=== PATIENT | female | born 1970 | race Caucasian/White ===

== ENCOUNTER 2017-01-26 09:54 | Day surgery (SDC) | payer BC, OTHER ==
[2017-01-22 15:40] VITALS: BMI 43.9
[2017-01-26] MEDS ORDERED: BUPIVACAINE HCL/PF 0.25% (2.5MG/ML) 10 ML VIAL ONE (10:28)
[2017-01-26] MEDS ORDERED: MIDAZOLAM HCL 2 MG/2 ML SINGLE DOSE VIAL ONE (11:00)
[2017-01-26] MEDS ORDERED: ceFAZolin SODIUM 1 GM VIAL IVPB ONE (11:30)
[2017-01-26] MEDS ORDERED: ceFAZolin SODIUM 1 GM VIAL ONE (11:31)
[2017-01-26] MEDS ORDERED: PROPOFOL 20 ML ONE (12:03)
[2017-01-26] MEDS ORDERED: BUPIVACAINE HCL/PF 0.5% (5MG/ML) 10 ML VIAL IJ ONE (12:03)
[2017-01-26] MEDS ORDERED: oxyCODONE HCL 5 MG TABLET PO PRN ×2 (12:24→12:28)
[2017-01-26] MEDS ORDERED: ONDANSETRON 4 MG/2 ML VIAL IVPUSH PRN (12:24)
[2017-01-26] MEDS ORDERED: ONDANSETRON 4 MG/2 ML VIAL IVPB PRN (12:28)
[2017-01-26] MEDS ORDERED: SODIUM CHLORIDE 1,000 ML IV SCH (12:30)
[2017-01-26] MEDS ORDERED: LACTATED RINGERS SOLUTION 1,000 ML IV SCH (12:30)
[2017-01-26] MEDS ORDERED: FAMOTIDINE 20 MG/50 ML IVPB 50 ML IVPB ONE (12:49)
[2017-01-26] MEDS ORDERED: FAMOTIDINE 20 MG PREMIXED IVPB IVPB ONE (12:49)
[2017-01-26 13:39] VITALS: TEMP 98.3
[2017-01-26] MEDS ORDERED: oxyCODONE HCL 5 MG TABLET ONE (14:25)
[2017-01-26] MEDS ORDERED: oxyCODONE HCL 5 MG TABLET PO ONE (14:30)
[2017-01-26] MEDS ORDERED: ENOXAPARIN NA (PORCINE) 40 MG/0.4 ML DISP.SYRIN SQ ONE ×2 (15:50→16:00)
[2017-01-26 16:42] VITALS: BP 127/78; PULSE 76
[2017-01-26] MEDS ORDERED: FAMOTIDINE 20 MG/50 ML IVPB 50 ML IVPB SCH (22:00)
--- NOTE | 2017-01-27 10:30 | OP ---
DATE OF OPERATION: 01/26/2017 PREOPERATIVE DIAGNOSES: 1. Epigastric abdominal pain. 2. Malfunctioning subcutaneous gastric band port. 3. Morbid obesity. POSTOPERATIVE DIAGNOSES: 1. Epigastric abdominal pain. 2. Malfunctioning subcutaneous gastric band port. 3. Morbid obesity. 4. Ventral hernia. PROCEDURE PERFORMED: 1. Revision of subcutaneous gastric band port. 2. Repair of ventral hernia. 3. Band adjustment. OPERATING SURGEON: Prabhjot Zuluaga MD ADHESIVE BANDAGE MAKING OPERATOR: Gabo Short MD ANESTHESIA: LMA mask. DESCRIPTION OF OPERATIVE PROCEDURE: The patient was brought into the operating room, placed on the OR table in supine position. All precautions were taken initially including padding for the back, and Venodyne boots were placed on both lower extremities. At that point, the abdomen was prepped and draped in usual manner. The port was twisted approximately 90 degrees which was proven by x-ray exam before surgery. The port was, therefore, felt underneath the skin in the epigastrium or midway between the xiphoid and the umbilicus in the midline scar from the patient's previous exploratory laparotomy. An incision was made transversely starting from the midline and extending laterally towards the right anterior rectus muscle. The incision was then continued with electrocautery through the subcutaneous tissue. In the midline where the midline incision was, there was a lot of scar tissue, and here, the band port was located. The scar tissue around the port was cleaned around the port, and the fibrous capsule was now removed from around the port. Dissection now continued more laterally through the subcutaneous tissue, down to the right anterior rectus muscle. There was scar tissue still from the midline position of the port, and this had to be dissected away in order for the port to sit properly. I discontinued downward. Once the scar tissue was dissected away, it unroofed a ventral hernia which was the size of approximately 2 to 2.5 cm. The ventral hernia then was repaired with 0 Prolene suture in interrupted fashion starting medially and continuing on the anterior fascia of the right rectus muscle in a lateral direction. Once this was repaired, it was intact. Dissection continued until the right anterior rectus muscle fascia was in full view. Four No. 2-0 Prolene sutures were placed in all 4 sides, and the port was then attached to the right anterior rectus muscle, and the Prolene sutures were tied. Once this was done, the port was now in a good perpendicular direction, and because the patient had morbid obesity, 1 mL of normal saline was then placed with a number 23 gauge needle into the port and it was used to fill the port with fluid. At this point, the incision was closed with 3-0 Vicryl in an interrupted fashion on the subcutaneous tissue, followed by 4-0 Biosyn in subcuticular fashion. Dressings were applied. The patient awoke from anesthesia and transferred out of the operating room to the recovery room in stable condition. Anesthesia for the case was general. Expected blood loss: 20 mL. Patient transferred to recovery room in stable condition. Baldomero [id number]
== END 2017-01-26 16:30 | disposition home or self-care (01) ==
LOC: JASU-SURG 09:54
PROVIDERS: ATTEND Surgery
PROC: 0WQF0ZZ Repair Abdominal Wall, Open Approach (ICD-10-PCS; 2017-01-26)
PROC: 3E0G3GC Introduction of Other Therapeutic Substance into Upper GI, Percutaneous Approach (ICD-10-PCS; 2017-01-26)
PROC: 0DW60CZ Revision of Extraluminal Device in Stomach, Open Approach (ICD-10-PCS; principal; 2017-01-26 11:00)
DX: K95.09 Other complications of gastric band procedure (principal); K43.9 Ventral hernia without obstruction or gangrene; R10.13 Epigastric pain; E66.01 Morbid (severe) obesity due to excess calories
CPT/HCPCS: 43888; 49560; S2083; 84703; 86850; 86900; 86901; 94760

== ENCOUNTER 2017-10-30 13:29 | Day surgery (SDC) | payer BC, OTHER ==
[2017-10-29 08:48] VITALS: BMI 42.5
[2017-10-30] MEDS ORDERED: PROPOFOL 20 ML ONE (18:23)
[2017-10-30] MEDS ORDERED: ROCURONIUM BROMIDE 50 MG/5 ML VIAL ONE (18:23)
[2017-10-30] MEDS ORDERED: MIDAZOLAM HCL 2 MG/2 ML SINGLE DOSE VIAL ONE (18:23)
[2017-10-30] MEDS ORDERED: LIDOCAINE HCL/PF 2% SDV 5ML VIAL ONE (18:25)
[2017-10-30] MEDS ORDERED: ceFAZolin SODIUM 1 GM VIAL ONE (18:53)
[2017-10-30] MEDS ORDERED: ceFAZolin SODIUM 1 GM VIAL IVPB ONE (18:55)
[2017-10-30] MEDS ORDERED: ESMOLOL HCL 100,000 MCG/10 ML VIAL ONE (19:03)
[2017-10-30] MEDS ORDERED: fentaNYL CITRATE 250 MCG/5 ML VIAL ONE (19:11)
[2017-10-30] MEDS ORDERED: ONDANSETRON 4 MG/2 ML VIAL ONE (19:13)
[2017-10-30] MEDS ORDERED: DEXAMETHASONE SOD PHOSPHATE 4 MG/1 ML VIAL ONE (19:13)
[2017-10-30] MEDS ORDERED: LABETALOL HCL 5 MG/1 ML (100MG/20 ML VIAL) ONE (19:18)
[2017-10-30] MEDS ORDERED: BUPIVACAINE HCL/PF 0.5% (5MG/ML) 10 ML VIAL ONE (19:46)
[2017-10-30] MEDS ORDERED: GLYCOPYRROLATE 0.2 MG/1 ML VIAL ONE (19:49)
[2017-10-30] MEDS ORDERED: NEOSTIGMINE METHYLSULFATE 0.5 MG/ML - 10 ML MDV ONE (19:49)
[2017-10-30] MEDS ORDERED: BUPIVACAINE HCL/PF 0.5% (5MG/ML) 10 ML VIAL IJ ONE (20:06)
[2017-10-30] MEDS ORDERED: oxyCODONE HCL 5 MG TABLET PO PRN (20:12)
[2017-10-30] MEDS ORDERED: ONDANSETRON 4 MG/2 ML VIAL IVPUSH PRN (20:12)
[2017-10-30] MEDS ORDERED: SODIUM CHLORIDE 1,000 ML IV SCH (20:15)
--- NOTE | 2017-10-30 20:19 | SURG ---
Surgery Risk Developer Note Risk Developer: Shaun Thompson PA-C Date of Service: 10/30/17 Diagnosis: Mechanical failure of slipped device (lap band), GERD, nausea/vomiting Procedure: Laprascopic lysis of adhesions, removal of lap band plus port component I was present for the entirety of the operative procedure. For further detail, please refer to operative report. Visit type - Case Type Case Type: Scheduled - New patient This patient is new to me today: Yes Date on this admission: 10/30/17
[2017-10-30] MEDS ORDERED: LACTATED RINGERS SOLUTION 1,000 ML IV SCH (20:30)
--- NOTE | 2017-10-30 20:30 | OP ---
Operative Note - Note: Operative Date: 10/30/17 Pre-Operative Diagnosis: Epigastric Pain. Vomiting. Malfunctioning mechanical device secondary to gastric band Operation: removal of gastric band plus sub-q port. Laparoscopic Lysis of adhesions. Excision of fibrous capsule around stomach. Diagnostic Laparoscopy Findings: Large amount of adhesions between omentum and abdominal wall Large adhesions between Band, Liver and Small Bowel Post-Operative Diagnosis: Same as Pre-op (Abdominal adhesions; Fibrous capsule around stomach) Surgeon: Prabhjot Zuluaga Dock Superintendent: Shaun Thompson Anesthesia: General Specimens Removed: Gastric Band plus sub-Q port Estimated Blood Loss (mls): 30 Operative Report Dictated: Yes
[2017-10-30] MEDS ORDERED: FAMOTIDINE 20 MG PREMIXED IVPB IVPB ONE (20:40)
[2017-10-30] MEDS: ENOXAPARIN NA (PORCINE) 40 MG/0.4 ML DISP.SYRIN SQ ONE ×2 (21:06→21:34)
--- NOTE | 2017-10-30 21:15 | HP ---
DATE OF ADMISSION: 10/30/2017 CHIEF COMPLAINT: 1. Epigastric pain. 2. Vomiting. 3. GE reflux disease. 4. Malfunctioning implantable device secondary to gastric band. HISTORY OF PRESENT ILLNESS: The patient is a 46-year-old woman who has had the gastric band for a number of years, but recently had many symptoms related to it. Despite multiple attempts at loosening the band, she still complained of epigastric pain when eating and also vomiting and GE reflux disease. This is secondary to malfunctioning of the band which needs to be removed. PAST MEDICAL HISTORY: Noncontributory. MEDICATIONS: Patient takes no medications except some vitamins over the counter. ALLERGIES: The patient had allergy to CIPRO. REVIEW OF SYMPTOMS: Cardiovascular: Within normal limits. Gastrointestinal: Positive for GE reflux disease and epigastric pain periodically. Neuromuscular: Within normal limits. Musculoskeletal: Within normal limits. Genitourinary: Within normal limits. PHYSICAL EXAMINATION: General: Patient awake, alert. No acute distress. HEENT: No masses palpated. Lungs: Clear bilaterally. Heart: Regular sinus rhythm. Abdomen: Well-healed incisions. Soft, nontender on palpation in all quadrants. Extremities: Within normal limits. IMPRESSION: Malfunctioning implantable device secondary to gastric band. PLAN: Plan is for laparoscopic removal of gastric band plus subcutaneous port component. Baldomero [id number]
[2017-10-30] MEDS ORDERED: FAMOTIDINE 20 MG/50 ML IVPB 20 MG/50 ML MG IVPB SCH (22:00)
[2017-10-30 23:30] VITALS: BP 141/98; PULSE 94; TEMP 98.3
--- NOTE | 2017-10-31 09:28 | OP ---
DATE OF OPERATION: 10/30/2017 PREOPERATIVE DIAGNOSES: 1. Epigastric abdominal pain. 2. Vomiting. 3. Mechanical complication from implantable device secondary to gastric band. POSTOPERATIVE DIAGNOSES: 1. Epigastric abdominal pain. 2. Vomiting. 3. Mechanical complication from implantable device secondary to gastric band. 4. Abdominal adhesions. 5. Fibrous capsule around the stomach. PROCEDURE PERFORMED: 1. Removal of gastric band plus subcutaneous port component. 2. Laparoscopic lysis of adhesions. 3. Excision of fibrous capsule around the stomach. 4. Diagnostic laparoscopy. OPERATING SURGEON: Prabhjot Zuluaga MD COMMUNITY LIVING INSTRUCTOR: NOY Montero ANESTHESIA: General. OPERATIVE PROCEDURE: The patient was brought into the operating room, placed on the OR table in the supine position. All precautions were taken initially including padding for the back and the feet, and Venodyne boots were placed on both lower extremities. At that point, the abdomen was prepped and draped in usual manner. A Veress needle was placed in the left upper quadrant, and a pneumoperitoneum was established. A number 5 bladeless trocar was placed in the left upper quadrant under direct vision with a laparoscope until the abdomen was entered. Immediately upon entering the abdomen, a number 5 camera was placed, and this showed there to be massive adhesions in the midline from the patient's previous midline surgery. These adhesions went from the umbilicus all the way up to the liver itself. At that point, a number 15 bladeless trocar was placed midline, and through that, a now number 12 camera was placed. Using the angle of the camera, a number 12 bladeless trocar was placed in the left upper quadrant below the left costal margin. The camera was now placed in the left upper quadrant, and now attention was directed to the adhesions. There was lysis of adhesions between the omentum and the falciform ligament until a number 5 bladeless trocar could be placed in the right upper quadrant lateral to the falciform ligament, and a laparoscopic instrument was placed. There were massive adhesions between the liver edge and the omentum, and these were gently dissected with the help of the assistant cross country coach surgeon, mostly with electrocautery until the band tubing was noted on the edge of the liver. At this point, with the assistant cross country coach surgeon retracting the small bowel inferiorly, the operating surgeon lifted the band tubing up, and electrocautery was used to dissect first the liver off of the band tubing and then the fibrous capsule off of the band tubing until the band was reached. Attention was now directed to the band on the lesser curvature side where again the assistant cross country coach surgeon retracted the small bowel inferiorly and to be out of harm's way. The operating surgeon was then able to lyse the fibrous capsule over the band until the entire lesser curvature of the band was in full view. At this point, the assistant cross country coach surgeon retracted the band to the patient's right side as the operating surgeon retracted the band tubing and the band towards the patient's right side, as the assistant cross country coach surgeon continued to retract the small bowel inferiorly. Now, the fibrous tissue over the band on the greater curvature side was dissected, and once this was done enough, the band was freely movable. The band was then cut at its takeoff to the subcutaneous tissue and the band was then opened and the band was then removed from around the stomach and sent off the field as specimen to Pathology. At this point, under direct vision, all trocars were removed, and pneumoperitoneum was released. The midline incision was now extended to the right side, and dissection continued with electrocautery down to the port on the right anterior rectus muscle fascia. The port was then removed and sent off the field as a specimen to Pathology with the rest of the specimen, and now, all trocar sites received 0.25% Marcaine. The number 15 trocar site was closed with 3-0 Vicryl to close the subcutaneous tissue, and then, all trocar sites were closed with 4-0 Biosyn in subcuticular fashion. Dressings were applied. The patient awoke from anesthesia and transferred out of the operating room to the recovery room in stable condition. EXPECTED BLOOD LOSS: 30 mL Baldomero [id number]
--- NOTE | 2017-11-04 11:10 | PATH ---
Surgical Pathology Report Patient Name: STACI RUBIO [facility]. Rec. #: [id number] /Age/Gender: 1970 (Age: 46) / F Account: [id number] Location: [facility] Taken: 10/30/2017 Received: 11/03/2017 Reported: 11/04/2017 Physicians: Prabhjot Zuluaga M.D. Specimen(s) Received REMOVED GASTRIC BAND Clinical History Malfunctioning gastric band Final Diagnosis GASTRIC BAND, REMOVAL: GASTRIC BAND. MACROSCOPIC DIAGNOSIS. Electronically Signed Freida Mcmahon M.D. Gross Description Received fresh labeled "removed gastric band," is a 4 cm. in diameter white, annular device with a focal defect, consistent with a gastric band. The band displays a 32 cm in length portion of white tubing extending from one aspect. Also received within the same container is a 3 cm in diameter x 1.5 cm in depth white, circular device, consistent with a port. The port displays a 25 cm in length portion of white tubing extending from one aspect. No soft tissue is present. No sections are submitted, gross only. DL/11/03/2017 saudi/11/03/2017
== END 2017-10-30 23:48 | disposition home or self-care (01) ==
LOC: JASU-SURG 13:29 → J8W 23:02 → JASU-SURG 23:48
PROVIDERS: ATTEND Surgery
PROC: 0DP60CZ Removal of Extraluminal Device from Stomach, Open Approach (ICD-10-PCS; 2017-10-30)
PROC: 0DN64ZZ Release Stomach, Percutaneous Endoscopic Approach (ICD-10-PCS; 2017-10-30)
PROC: 0DP64CZ Removal of Extraluminal Device from Stomach, Percutaneous Endoscopic Approach (ICD-10-PCS; principal; 2017-10-30 16:00)
DX: T85.518A Breakdown (mechanical) of other gastrointestinal prosthetic devices, implants and grafts, initial encounter (principal); K95.09 Other complications of gastric band procedure; K31.89 Other diseases of stomach and duodenum; R10.13 Epigastric pain; R11.10 Vomiting, unspecified; K66.0 Peritoneal adhesions (postprocedural) (postinfection); Y93.89 Activity, other specified; Y92.89 Other specified places as the place of occurrence of the external cause
CPT/HCPCS: 36415; 84703; 86850; 86900; 86901; 88300-TC; 94760

== ENCOUNTER 2017-12-15 11:00 | Inpatient (IN) | payer BC, OTHER ==
[2017-12-14 08:43] VITALS: BMI 42.3
[2017-12-15] MEDS ORDERED: BUPIVACAINE HCL/PF 0.5% (5MG/ML) 10 ML VIAL ONE ×3 (13:53→18:15)
--- NOTE | 2017-12-15 14:10 | HP ---
Admitting History and Physical - Admission Chief Complaint: Incisional /ventral hernia with pain History of Present Illness: 47 female s/p Shawn en y Gastric Bypass, Lap band, lap band removal with multiple admissions for abdominal pain With incisional/ventral hernia causing pain Presents for repair Risks and benefits explained History Source: Patient Limitations to Obtaining History: No Limitations - Past Medical History Pulmonary: Yes: Pulmonary Embolus, Other (DVT) Gastrointestinal: Yes: Other (periebolical pain) ...LMP: 12/03/17 - Past Surgical History Past Surgical History: Yes: Bariatric Surgery (Gastric Bypass Lap Band Lap band removal) - Smoking History Smoking history: Never smoked Have you smoked in the past 12 months: No - Alcohol/Substance Use Hx Alcohol Use: Yes (recovering) History of Substance Use: reports: None - Social History ADL: Independent History of Recent Travel: No Home Medications - Allergies Allergies/Adverse Reactions: Allergies Allergy/AdvReac Type Severity Reaction Status Date / Time ciprofloxacin [From Cipro] Allergy Severe Rash Verified 11/25/17 07:20 - Home Medications Home Medications: Ambulatory Orders Multivit/Iron/FA/K/Herb No.244 [Alive [employer] Mv Tablet] 1 each PO DAILY 01/22/17 Famotidine [Pepcid] 20 mg PO QID #60 tablet 10/30/17 Oxycodone HCl/Acetaminophen [Percocet 5-325 mg Tablet] 1 tab PO Q6H PRN #20 tablet MDD 4 10/30/17 Docusate Sodium [Colace -] 100 mg PO TID #90 capsule 12/15/17 Famotidine [Pepcid] 20 mg PO BID #60 tablet 12/15/17 Oxycodone HCl/Acetaminophen [Percocet 5-325 mg Tablet] 1 - 2 tab PO Q6H #28 tab MDD 4 12/15/17 Family Disease History - Family Disease History Family History: Unremarkable Review of Systems - Review of Systems Constitutional: denies: Chills, Fever HENT: reports: No Symptoms Neck: reports: No Symptoms Cardiovascular: denies: Chest Pain Respiratory: denies: Cough Gastrointestinal: reports: Abdominal Pain Genitourinary: reports: No Symptoms Neurological: denies: Change in LOC Pain Intensity: 3 Physical Examination Vital Signs: Vital Signs Temperature Pulse Rate 60 12/15/17 12:13 Respiratory Rate 16 12/15/17 12:13 Blood Pressure 109/59 12/15/17 12:13 O2 Sat by Pulse Oximetry (%) 100 12/15/17 12:13 Constitutional: Yes: Calm Neck: Yes: WNL Cardiovascular: Yes: Regular Rate and Rhythm Respiratory: Yes: CTA Bilaterally Gastrointestinal: Yes: Soft, Abdomen, Obese, Other (+ ventral/incisional hernia with pain) Neurological: Yes: Alert, Oriented Imaging - Results Cat Scan: Report Reviewed, Image Reviewed Problem List - Problems (1) Incisional hernia Code(s): K43.2 - INCISIONAL HERNIA WITHOUT OBSTRUCTION OR GANGRENE Qualifiers: Obstruction and gangrene presence: with obstruction but without gangrene Qualified Code(s): K43.0 - Incisional hernia with obstruction, without gangrene (2) Ventral hernia with bowel obstruction Code(s): K43.6 - OTHER AND UNSP VENTRAL HERNIA WITH OBSTRUCTION, W/O GANGRENE Assessment/Plan 47 female for diagnositc laparoscopy, possible exploratory laparotomy, Robotic possible open incisional/ventral hernia repair with possible mesh
[2017-12-15] MEDS ORDERED: fentaNYL CITRATE 250 MCG/5 ML VIAL ONE ×2 (14:32→15:17)
[2017-12-15] MEDS ORDERED: PROPOFOL 20 ML ONE ×4 (14:33→17:22)
[2017-12-15] MEDS ORDERED: MIDAZOLAM HCL 2 MG/2 ML SINGLE DOSE VIAL ONE (14:33)
[2017-12-15] MEDS ORDERED: ROCURONIUM BROMIDE 50 MG/5 ML VIAL ONE ×2 (14:33→16:28)
[2017-12-15] MEDS ORDERED: ceFAZolin SODIUM 1 GM VIAL ONE (14:59)
[2017-12-15] MEDS ORDERED: ceFAZolin SODIUM 1 GM VIAL IVPB ONE (15:03)
[2017-12-15] MEDS ORDERED: DEXAMETHASONE SOD PHOSPHATE 4 MG/1 ML VIAL ONE (15:16)
[2017-12-15] MEDS ORDERED: LABETALOL HCL 5 MG/1 ML (100MG/20 ML VIAL) ONE (16:10)
[2017-12-15] MEDS ORDERED: NEOSTIGMINE METHYLSULFATE 0.5 MG/ML - 10 ML MDV ONE (16:14)
[2017-12-15] MEDS ORDERED: GLYCOPYRROLATE 0.2 MG/1 ML VIAL ONE (16:14)
[2017-12-15] MEDS ORDERED: DESFLURANE GAS 240 ML BOTTLE IH ONE (16:55)
[2017-12-15] MEDS ORDERED: BUPIVACAINE HCL/PF 0.5% (5MG/ML) 10 ML VIAL IJ ONE ×2 (18:10)
--- NOTE | 2017-12-15 18:18 | OP ---
Operative Note - Note: Operative Date: 12/15/17 Pre-Operative Diagnosis: Chronically incarcerated incisional/ventral hernia Operation: Diagnostic laparoscopy. Robotic extensive lysis of adhesions. Robotic repair of incarcerated incisional/ventral hernia- primary and with mesh Post-Operative Diagnosis: Other (Diffuse intraabdominal adhesions, incarcerated incisional/ventral hernia) Surgeon: Gabo Short Contract Negotiation Manager: Manda Garcia Anesthesia: General Specimens Removed: None Estimated Blood Loss (mls): 50 Drains & Tubes with Location: [place], NG tube Operative Report Dictated: Yes
[2017-12-15] MEDS ORDERED: ONDANSETRON 4 MG/2 ML VIAL IVPUSH PRN ×2 (18:19→19:01)
[2017-12-15] MEDS ORDERED: D5-1/2NS+20 MEQ KCL - 1,000 ML IV SCH (18:30)
[2017-12-15] MEDS ORDERED: ACETAMINOPHEN INJECTION 100 ML IVPB ONE (18:54)
[2017-12-15] MEDS: ACETAMINOPHEN 1000 MG/100 ML VIAL (NON FORMULARY) IVPB ONE ×2 (19:00→21:09)
[2017-12-15] MEDS ORDERED: PROMETHAZINE HCL 25 MG/1 ML VIAL IVPB PRN (19:01)
--- NOTE | 2017-12-15 19:05 | SURG ---
Surgery Nozzle And Sleeve Worker Note Nozzle And Sleeve Worker: Manda Garcia PA-C Date of Service: 12/15/17 Diagnosis: Chronically incarcerated incisional/ventral hernia Procedure: Diagnostic laparoscopy. Robotic extensive lysis of adhesions. Robotic repair of incarcerated incisional/ventral hernia- primary and with mesh I was present for the entirety of the operative procedure. For further detail, please refer to operative report. Visit type - Case Type Case Type: Scheduled - Emergency Emergency Visit: No - New patient This patient is new to me today: Yes Date on this admission: 12/15/17
[2017-12-15] MEDS ORDERED: LACTATED RINGERS SOLUTION 1,000 ML IV SCH (19:15)
[2017-12-15 19:35] LABS: HEMATOCRIT 33.9 % (32.4-45.2); HEMOGLOBIN 10.4 GM/dL (10.7-15.3); MCH 23.9 pg (25.7-33.7); MCHC 30.8 g/dl (32.0-36.0); MEAN CELL VOLUME 77.9 fl (80-96); MEAN PLT VOLUME 8.3 fl (7.5-11.1); PLATELET COUNT 288 K/MM3 (134-434); RBC 4.36 M/mm3 (3.60-5.2); RDW 17.5 % (11.6-15.6)
[2017-12-15] MEDS: SODIUM CHLORIDE 1,000 ML IV SCH (19:51)
[2017-12-15 19:57] LABS: ANION GAP 7 (8-16); BLOOD UREA NITROGEN 10 mg/dL (7-18); CALCIUM 8.3 mg/dL (8.5-10.1); CHLORIDE 105 mmol/L (98-107); CO2 29 mmol/L (21-32); CREATININE 0.7 mg/dL (0.55-1.02); GLUCOSE,RANDOM 147 mg/dL (74-106); POTASSIUM 4.2 mmol/L (3.5-5.1); SODIUM 141 mmol/L (136-145)
[2017-12-15] MEDS: ENOXAPARIN NA (PORCINE) 40 MG/0.4 ML DISP.SYRIN SQ SCH (21:22)
[2017-12-15] MEDS: morphine SULFATE 4 MG/ML VIAL IVPUSH PRN (21:22)
[2017-12-15] MEDS: RANITIDINE HCL 150 MG TABLET (FP) PO SCH (21:22)
[2017-12-16] MEDS: morphine SULFATE 4 MG/ML VIAL IVPUSH PRN ×5 (01:24→21:21)
[2017-12-16 08:28] LABS: HEMATOCRIT 30.5 % (32.4-45.2); HEMOGLOBIN 9.6 GM/dL (10.7-15.3); MCH 24.4 pg (25.7-33.7); MCHC 31.4 g/dl (32.0-36.0); MEAN CELL VOLUME 77.8 fl (80-96); MEAN PLT VOLUME 8.1 fl (7.5-11.1); PLATELET COUNT 239 K/MM3 (134-434); RBC 3.93 M/mm3 (3.60-5.2); RDW 17.4 % (11.6-15.6); WHITE BLOOD COUNT 7.5 K/mm3 (4.0-10.0)
--- NOTE | 2017-12-16 08:48 | PN ---
Progress Note (short form) - Note Progress Note: Anesthesia post op/Pain Pt seen and examined S:Alert and awake mild headache O: Vital Signs Temperature 99.4 F 12/16/17 06:00 Pulse Rate 86 12/16/17 06:00 Respiratory Rate 20 12/16/17 06:00 Blood Pressure 126/76 12/16/17 06:00 O2 Sat by Pulse Oximetry (%) 97 12/15/17 21:00 CBC, BMP 12/16/17 06:30 A/P Current Active Problems Incarcerated incisional hernia (Acute) Incarcerated ventral hernia (Acute) Incisional hernia (Acute) Intra-abdominal adhesions (Acute) Ventral hernia with bowel obstruction (Acute) s/p Doing well post op Continue current care Ton Kelly MD
[2017-12-16 08:55] LABS: BLOOD UREA NITROGEN 7 mg/dL (7-18); CALCIUM 8.6 mg/dL (8.5-10.1); CO2 29 mmol/L (21-32); CREATININE 0.4 mg/dL (0.55-1.02); GLUCOSE,RANDOM 95 mg/dL (74-106)
[2017-12-16] MEDS ORDERED: ACETAMINOPHEN 325 MG TABLET (FP) PO ONE (09:30)
--- NOTE | 2017-12-16 09:41 | PN ---
Progress Note (short form) - Note Progress Note: Surgery POD #1 Robotic extensive lysis of adhesions. Robotic repair of incarcerated incisional/ventral hernia- primary and with mesh. Patient seen and examined at bedside. Patient states she had a minor headache this morning but it appears to be improving. She has been tolerating her diet and denies any CP/SOB, N/V Fever or chills. Vital Signs Temp 99.4 F 12/16/17 06:00 Pulse 86 12/16/17 06:00 Resp 20 12/16/17 06:00 BP 126/76 12/16/17 06:00 Pulse Ox 97 12/15/17 21:00 Intake & Output 12/15/17 12/15/17 12/16/17 11:59 23:59 11:59 Intake Total 3015 Output Total 400 800 Balance 2615 -800 Intake: IV 2875 Normal Saline - 1,000 ml 425 @ 125 mls/hr IV ASDIR VILLA Rx#:[id number] IVPB 20 Oral 120 Output: Urine 350 800 [place] 800 Estimated Blood Loss 50 Other: Voiding Method Indwelling Catheter CBC, BMP 12/16/17 06:30 PE A&Ox3, NAD unlabored resp on RA ABD: obese, soft, supple with mild ttp throughout appropriate to status, incisions c/d/i with no d/c surrounding tissue intact with no evidence of tracking erythema. b/l LE compartments soft, supple and non-tender with +2 pedal pulses. <Manda Garcia - Last Filed: 12/16/17 13:38> - Note Progress Note: Agree POD 1 Still with postop pain Will continue to observe On diet AVSS Abd soft Binder in place Labs WNL Plan for discharge in am <Gabo Short - Last Filed: 12/16/17 14:54> Problem List - Problems (1) Incarcerated ventral hernia Assessment/Plan: POD#1 ventral hernia repair. 1) OOB as tolerated 2) d/c [place] sant[place] 3) DVT/GI prophylaxis 4) d/c home Code(s): K46.0 - UNSP ABDOMINAL HERNIA WITH OBSTRUCTION, WITHOUT GANGRENE <Manda Garcia - Last Filed: 12/16/17 13:38> - Problems (1) Incisional hernia Code(s): K43.2 - INCISIONAL HERNIA WITHOUT OBSTRUCTION OR GANGRENE Qualifiers: Obstruction and gangrene presence: with obstruction but without gangrene Qualified Code(s): K43.0 - Incisional hernia with obstruction, without gangrene (2) Ventral hernia with bowel obstruction Code(s): K43.6 - OTHER AND UNSP VENTRAL HERNIA WITH OBSTRUCTION, W/O GANGRENE <Gabo Short - Last Filed: 12/16/17 14:54>
[2017-12-16] MEDS: RANITIDINE HCL 150 MG TABLET (FP) PO SCH ×2 (10:20→21:21)
[2017-12-16] MEDS: ENOXAPARIN NA (PORCINE) 40 MG/0.4 ML DISP.SYRIN SQ SCH ×2 (10:20→21:21)
[2017-12-16 12:55] LABS: ANION GAP 7 (8-16); CHLORIDE 104 mmol/L (98-107); POTASSIUM 4.2 mmol/L (3.5-5.1); SODIUM 140 mmol/L (136-145)
--- NOTE | 2017-12-16 13:16 | PN ---
Progress Note, Physician Chief Complaint: s/p vent5 hernia repair vss bm ok oob tolerating diet wd dry - Current Medication List Current Medications: Active Medications Enoxaparin Sodium (Lovenox -) 40 mg SQ BID [facility] Last Admin: 12/16/17 10:20 Dose: 40 mg Fentanyl (Sublimaze Injection -) 50 mcg IVPUSH [id number] PRN PRN Reason: PAIN-PACU ORDER X 4 DOSES ONLY Last Admin: 12/15/17 19:30 Dose: 50 mcg Sodium Chloride (Normal Saline -) 1,000 mls @ 125 mls/hr IV ASDIR [facility] Last Admin: 12/15/17 19:51 Dose: 125 mls/hr Morphine Sulfate (Morphine Sulfate) 4 mg IVPUSH Q4H PRN PRN Reason: PAIN LEVEL 4 - 6 Last Admin: 12/16/17 12:23 Dose: 4 mg Ondansetron HCl (Zofran Injection) 4 mg IVPUSH Q4H PRN PRN Reason: NAUSEA AND/OR VOMITING Ondansetron HCl (Zofran Injection) 4 mg IVPUSH Q6H PRN PRN Reason: NAUSEA AND/OR VOMITING Promethazine HCl (Phenergan Injection -) 12.5 mg IVPB Q6H PRN PRN Reason: NAUSEA-FOR RESCUE AFTER 15 MIN Ranitidine HCl (Zantac -) 150 mg PO BID [facility] Last Admin: 12/16/17 10:20 Dose: 150 mg - Objective Vital Signs: Vital Signs Temperature 98.9 F 12/16/17 10:00 Pulse Rate 84 12/16/17 10:00 Respiratory Rate 18 12/16/17 10:00 Blood Pressure 134/83 12/16/17 10:00 O2 Sat by Pulse Oximetry (%) 97 12/15/17 21:00 Constitutional: Yes: No Distress Eyes: Yes: WNL HENT: Yes: WNL Neck: Yes: WNL Cardiovascular: Yes: WNL Respiratory: Yes: WNL Gastrointestinal: Yes: WNL ...Rectal Exam: Yes: Deferred Genitourinary: Yes: WNL Breast(s): Yes: WNL Musculoskeletal: Yes: WNL Edema: No Peripheral Pulses WNL: Yes Integumentary: Yes: WNL Wound/Incision: Yes: Clean/Dry Neurological: Yes: WNL ...Motor Strength: WNL Psychiatric: Yes: WNL Labs: CBC, BMP 12/16/17 06:30 12/16/17 06:30 Assessment/Plan oob medicallt stable
[2017-12-16] MEDS: SODIUM CHLORIDE 1,000 ML IV SCH (19:02)
--- NOTE | 2017-12-17 00:48 | OP ---
DATE OF OPERATION: 12/15/2017 SURGEON: Ovidio Short MD M[employer]IC[employer] LINE OPERATOR: NOY Zambrano PREOPERATIVE DIAGNOSIS: 1. Abdominal pain. 2. Incarcerated incisional/ventral hernia, chronic. POSTOPERATIVE DIAGNOSIS: 1. Abdominal pain. 2. Chronic incarcerated incisional/ventral hernia with omentum and bowel. 3. Extensive intraabdominal adhesions and secondary incisional/ventral hernia. PROCEDURES: 1. Diagnostic laparoscopy. 2. Laparoscopic lysis of adhesions. 3. Robotic extensive lysis of adhesions, adhesiolysis. 4. Repair of incisional/ventral hernia, both with primary repair as well as mesh x2. SPECIMENS: None. ESTIMATED BLOOD LOSS: 50 mL. DRAINS: Dobson and NG tube. ANESTHESIA: GTE. REASON FOR THE PROCEDURE: This 47-year-old female presents to the office for abdominal pain. She was in the hospital multiple times for abdominal pain, nausea, and vomiting. She was noted to have an incarcerated incisional/ventral hernia with small bowel at that time. She presented to the office for further evaluation. After describing the different options, we decided to proceed with a diagnostic laparoscopy, robotic, possible open repair of her incisional/ventral hernia with possible mesh. The risks and benefits of the procedure were explained. These included bleeding, infection, recurrence of hernia, IL, DVT, PE, injury to the surrounding structures including injury to the bowel, colon, liver, spleen, stomach, as well as other intraabdominal organs, vessel injury, nerve injury, seroma, hematoma, mesh infection, and some other complications. She understood and signed the informed consent. DESCRIPTION OF PROCEDURE: Patient was placed supine on the operating room table. She underwent general endotracheal intubation. The abdomen was prepped and draped in the usual sterile fashion, after a Dobson catheter and NG tube were inserted. A timeout was performed. Incision was made in the left lower quadrant. Veress needle was inserted and pneumoperitoneum was established. Subsequently, the Veress needle was removed. A 5-mm optical trocar was placed under direct visualization. Inspection of the abdominal cavity was performed. Immediately there were noted to be dense intraabdominal adhesions to the anterior abdominal wall with omentum and bowel within a chronically incarcerated hernia. Second and third 5-mm trocars were placed in the left lower quadrant. Laparoscopic reduction and lysis of adhesions was performed. At this point, it was believed that a robotic approach was feasible. At this point, the 5-mm trocars were replaced with 8-mm robotic trocars and a fourth 8-mm robotic trocar was placed in the right lower quadrant. The robot was brought over the field and docked. The patient was placed in slight right lateral decubitus position. Dissection was performed at the console. Chronically incarcerated bowel and omentum were carefully dissected free and removed from the hernia along with its sac. All of the adhesions were carefully dissected, which were noted to be extensive. Once this was done, the hernia was noted to be fully reduced. A secondary hernia was also noted superior to this. The larger hernia, which was approximately 4 cm x 4 cm in size, was closed using 0 Vicryl V-loc suture in a running fashion, [id number] and back to superior, closing the defect primarily. The smaller hernia did not need to be closed as it was less than 2 cm x 2 cm in size. Hemostasis was noted. Again, no injury was noted. Suction was performed to clean out the abdominal cavity. The 8-mm trocar was then replaced with a 12-mm trocar in order to introduce the mesh. Ventralight mesh with echo positioning system was introduced into the abdominal cavity. A stab wound was made at the middle of both hernia defects and a Alon-Maryellen device was inserted. This was used to grasp the inflation tubing of the mesh, which was exteriorized. The balloon infrastructure was then inflated allowing the mesh to expand and cover both hernia defects. The mesh was tacked circumferentially using absorbable takers as well as secured using 2-0 Prolene sutures circumferentially. Each suture was placed by making a stab wound with an 11-blade scalpel, placing a spinal needle and inserted a 2-0 Prolene and then placing a Grammy needle passer to pull the suture through the mesh, securing it to the abdominal wall. This was again done in multiple positions circumferentially securing the mesh in place. The mesh was noted to be secured well. At this point, all instruments were removed. All needles were removed and noted to be fully accounted for. The robot was undocked and sent off of the field. Hemostasis was again noted. Pneumoperitoneum was desufflated. All trocars were removed. Marcaine was injected at all sites. The small stab wound incisions were closed with Dermabond and the larger incisions were closed with 4-0 Biosyn suture. Sterile dressings were applied. The patient tolerated the procedure well. The Dobson catheter was left in place and will plan to remove in the morning. OVIDIO SHORT M.D. [id number]
[2017-12-17] MEDS: morphine SULFATE 4 MG/ML VIAL IVPUSH PRN ×4 (02:45→15:28)
[2017-12-17] MEDS ORDERED: PT OWN MED DRAWER 7, Y5N ONE (09:40)
[2017-12-17] MEDS: ENOXAPARIN NA (PORCINE) 40 MG/0.4 ML DISP.SYRIN SQ SCH (09:45)
[2017-12-17] MEDS: RANITIDINE HCL 150 MG TABLET (FP) PO SCH (09:45)
--- NOTE | 2017-12-17 10:52 | PN ---
Progress Note, Physician History of Present Illness: oob vss no bm yet gasoues - Current Medication List Current Medications: Active Medications Enoxaparin Sodium (Lovenox -) 40 mg SQ BID [facility] Last Admin: 12/17/17 09:45 Dose: 40 mg Fentanyl (Sublimaze Injection -) 50 mcg IVPUSH [id number] PRN PRN Reason: PAIN-PACU ORDER X 4 DOSES ONLY Last Admin: 12/15/17 19:30 Dose: 50 mcg Sodium Chloride (Normal Saline -) 1,000 mls @ 125 mls/hr IV ASDIR [facility] Last Admin: 12/16/17 19:02 Dose: Not Given Morphine Sulfate (Morphine Sulfate) 4 mg IVPUSH Q4H PRN PRN Reason: PAIN LEVEL 4 - 6 Last Admin: 12/17/17 06:54 Dose: 4 mg Ondansetron HCl (Zofran Injection) 4 mg IVPUSH Q4H PRN PRN Reason: NAUSEA AND/OR VOMITING Ondansetron HCl (Zofran Injection) 4 mg IVPUSH Q6H PRN PRN Reason: NAUSEA AND/OR VOMITING Promethazine HCl (Phenergan Injection -) 12.5 mg IVPB Q6H PRN PRN Reason: NAUSEA-FOR RESCUE AFTER 15 MIN Ranitidine HCl (Zantac -) 150 mg PO BID [facility] Last Admin: 12/17/17 09:45 Dose: 150 mg - Objective Vital Signs: Vital Signs Temperature 100.2 F H 12/17/17 06:19 Pulse Rate 80 12/17/17 06:19 Respiratory Rate 18 12/17/17 06:19 Blood Pressure 137/87 12/17/17 06:19 O2 Sat by Pulse Oximetry (%) 97 12/15/17 21:00 Constitutional: Yes: Other (abd distetion) Eyes: Yes: WNL HENT: Yes: WNL Neck: Yes: WNL, Tenderness Respiratory: Yes: WNL Gastrointestinal: Yes: Hypoactive Bowel Sounds ...Rectal Exam: Yes: Deferred Genitourinary: Yes: WNL Breast(s): Yes: WNL Musculoskeletal: Yes: WNL Extremities: Yes: WNL Edema: No Peripheral Pulses WNL: Yes Integumentary: Yes: WNL Wound/Incision: Yes: Clean/Dry Neurological: Yes: WNL ...Motor Strength: WNL Psychiatric: Yes: WNL Labs: CBC, BMP 12/16/17 06:30 12/16/17 06:30 Assessment/Plan r/o ileus do fua rudialaamber chk cbc in am up to sx to d/c home
[2017-12-17 12:17] VITALS: BP 136/91; PULSE 81; TEMP 99.4
--- NOTE | 2017-12-17 13:09 | PN ---
Progress Note (short form) - Note Progress Note: No new events Pain controlled No vomiting No gas AVSS Abd soft Binder in place Pending FUA Given Miralax Possible discharge home Problem List - Problems (1) Incisional hernia Code(s): K43.2 - INCISIONAL HERNIA WITHOUT OBSTRUCTION OR GANGRENE Qualifiers: Obstruction and gangrene presence: with obstruction but without gangrene Qualified Code(s): K43.0 - Incisional hernia with obstruction, without gangrene (2) Ventral hernia with bowel obstruction Code(s): K43.6 - OTHER AND UNSP VENTRAL HERNIA WITH OBSTRUCTION, W/O GANGRENE
[2017-12-18] MEDS ORDERED: POLYETHYLENE GLYCOL 3350 119 GM BTL PO SCH (10:00)
== END 2017-12-17 17:52 | disposition home or self-care (01) | DRG 336 ==
LOC: JASU-SURG 11:00 → J8W 20:31 → JASU-SURG 20:32 → J8W 20:32
PROVIDERS: ADMIT Surgery; ATTEND Surgery
PROC: 0WUF4JZ Supplement Abdominal Wall with Synthetic Substitute, Percutaneous Endoscopic Approach (ICD-10-PCS; 2017-12-15)
PROC: 0WJJ4ZZ Inspection of Pelvic Cavity, Percutaneous Endoscopic Approach (ICD-10-PCS; 2017-12-15)
PROC: 8E0W4CZ Robotic Assisted Procedure of Trunk Region, Percutaneous Endoscopic Approach (ICD-10-PCS; 2017-12-15)
PROC: 0DNW4ZZ Release Peritoneum, Percutaneous Endoscopic Approach (ICD-10-PCS; principal; 2017-12-15 13:00)
DX: K43.0 Incisional hernia with obstruction, without gangrene (principal); Z68.41 Body mass index [BMI] 40.0-44.9, adult; K43.6 Other and unspecified ventral hernia with obstruction, without gangrene; E66.9 Obesity, unspecified; K66.0 Peritoneal adhesions (postprocedural) (postinfection)
CPT/HCPCS: 36415; 74018-TC-FY; 80048; 84703; 85027; 86850; 86900; 86901; 94010; 94760; J0131; J7030

== ENCOUNTER 2017-12-24 13:44 | Emergency (ER) | payer BC, OTHER ==
[2017-12-24 13:52] VITALS: TEMP 98.4; BMI 41.8
--- NOTE | 2017-12-24 14:26 | PDOC ---
Attending Attestation - HPI HPI: 12/24/17 15:56 The patient is a 47 year old Female with a significant past medical history of DVT/PEx1, and recent robotic assisted VIHR 12/16/2017, who presents to the ED with 1 day of LLE calf pain and mild swelling sent from her PCP's office today for evaluation of DVT. She states that she first noticed the pain last night, described as sharp/crampy, exacerbated with movement. The patient denies chest pain, shortness of breath, headache and dizziness. The patient denies fever, chills, nausea, vomit, diarrhea and constipation. The patient denies dysuria, frequency, urgency and hematuria. Allergies: NKDA - Medical Decision Making 12/24/17 15:56 Documentation prepared by Laura Obregon, acting as medical concierge for Deirdre Navarro MD,
[2017-12-24 15:10] LABS: HEMATOCRIT 35.8 % (32.4-45.2); HEMOGLOBIN 11.3 GM/dL (10.7-15.3); MCH 24.6 pg (25.7-33.7); MCHC 31.7 g/dl (32.0-36.0); MEAN CELL VOLUME 77.7 fl (80-96); MEAN PLT VOLUME 8.2 fl (7.5-11.1); PLATELET COUNT 358 K/MM3 (134-434); RDW 17.5 % (11.6-15.6)
--- NOTE | 2017-12-24 15:14 | PDOC ---
History of Present Illness - General Chief Complaint: Pain Stated Complaint: R/O DVT Time Seen by Provider: 12/24/17 14:25 - History of Present Illness Initial Comments: The patient is a 47F who presents with a history of DVT/PEx1, and recent robotic assisted VIHR 12/16/2017 who presents with 1 day of LLE calf pain and mild swelling from her PCP's office for evaluation of DVT. She states that she first noticed the pain last night, described as sharp/crampy, worse with movement especially dorsiflexion of the left foot. She denies overlying rash, change in sensation, SOB, CP, BABB, vision changes, or any other associated symptoms. Her previous DVT/PE occurred after surgery in 2012 s/p surgery for which she was anticoagulated. However, she has not had a recurrence or been on a anticoagulant since that time. 12/24/17 15:25 Past History - Past Medical History Allergies/Adverse Reactions: Allergies Allergy/AdvReac Type Severity Reaction Status Date / Time ciprofloxacin [From Cipro] Allergy Severe Rash Verified 12/24/17 13:52 Home Medications: Ambulatory Orders Docusate Sodium [Colace -] 100 mg PO TID #90 capsule 12/15/17 Famotidine [Pepcid] 20 mg PO BID #60 tablet 12/15/17 Oxycodone HCl/Acetaminophen [Percocet 5-325 mg Tablet] 1 - 2 tab PO Q6H #28 tab MDD 4 12/15/17 Anemia: Yes (IRON DEFICIENCY) Asthma: No Cancer: No Cardiac Disorders: No CVA: No COPD: No CHF: No Dementia: No Diabetes: No GI Disorders: No Disorders: No HTN: No Hypercholesterolemia: No Liver Disease: No Seizures: No Thyroid Disease: No Other medical history: PE/DVT - Surgical History Abdominal Surgery: No Appendectomy: Yes (GASTRIC BYPASS;LAP BAND 02/21-BAND REMOVED) Cardiac Surgery: No Cholecystectomy: No Lung Surgery: No Neurologic Surgery: No Orthopedic Surgery: No - Immunization History Immunization Up to Date: Yes - Suicide/Smoking/Psychosocial Hx Smoking History: Never smoked Have you smoked in the past 12 months: No Information on smoking cessation initiated: No Hx Alcohol Use: No Drug/Substance Use Hx: No Substance Use Type: None Hx Substance Use Treatment: No Review of Systems - Review of Systems Comments:: GENERAL/CONSTITUTIONAL: No fever or chills. No weakness. HEAD, EYES, EARS, NOSE AND THROAT: No change in vision. No ear pain or discharge. No sore throat. CARDIOVASCULAR: No chest pain or shortness of breath RESPIRATORY: No cough, wheezing, or hemoptysis. GASTROINTESTINAL: No nausea, vomiting, diarrhea or constipation. GENITOURINARY: No dysuria, frequency, or change in urination. MUSCULOSKELETAL: + left calf pain. No neck or back pain. SKIN: No rash NEUROLOGIC: No headache, loss of consciousness, or change in strength/sensation. ENDOCRINE: No increased thirst. No abnormal weight change HEMATOLOGIC/LYMPHATIC: +hx of DVTx1 in 2013. No anemia ALLERGIC/IMMUNOLOGIC: No hives or skin allergy. *Physical Exam - Vital Signs Last Vital Signs Temp Pulse Resp BP Pulse Ox 98.4 F 85 18 130/101 100 12/24/17 13:49 12/24/17 13:49 12/24/17 13:49 12/24/17 13:49 12/24/17 13:49 - Physical Exam General Appearance: Yes: Nourished, Obese. No: Apparent Distress HEENT: positive: EOMI, UJICE, Normal Voice. negative: Scleral Icterus (R), Scleral Icterus (L) Neck: positive: Trachea midline, Supple. negative: Tender Respiratory/Chest: positive: Lungs Clear, Normal Breath Sounds. negative: Chest Tender, Respiratory Distress Cardiovascular: positive: Regular Rhythm, Regular Rate. negative: Edema, Murmur Vascular Pulses: Femoral (R): 2+, Femoral (L): 2+, Carotid (R): 2+, Carotid (L) : 2+, Dorsalis-Pedis (R): 2+, Doralis-Pedis (L): 2+ Gastrointestinal/Abdominal: positive: Normal Bowel Sounds, Soft, Protuberent. negative: Tender, Distended, Guarding, Rebound Musculoskeletal: positive: Other (Left mid-calf TTP; no erythema or palpable cords). negative: CVA Tenderness, Decreased Range of Motion Extremity: positive: Calf Tenderness, Other (no palpable cords). negative: Erythema, Inflammation Integumentary: positive: Dry, Warm. negative: Erythema, Rash Neurologic: positive: centerless grinding machine adjuster II-XII NML intact, Fully Oriented, Alert, Normal Mood/ Affect, Motor Strength 10/10 ED Treatment Course - LABORATORY CBC & Chemistry Diagram: 12/24/17 15:00 12/24/17 15:00 - ADDITIONAL ORDERS Additional order review: 12/24/17 15:00 RBC 4.60 MCV 77.7 L MCHC 31.7 L RDW 17.5 H MPV 8.2 - RADIOLOGY Radiology Studies Ordered: Category Date Time Status CHEST X-RAY PORTABLE* [RAD] Stat Radiology 12/24/17 14:42 Ordered DUPLEX VASCUL US-1 LEG [US] Stat Ultrasound 12/24/17 14:42 Ordered Medical Decision Making - Medical Decision Making The patient is a 47F with a history of DVT/PEx1 in 2012 who presents 1wk s/p VIHR with left calf pain concerning for DVT. DDx: DVT, cellulitis, trauma/strain, bursitis; not likely abscess/deep tissue infection ED Course: BMP, CBC, CXR, LLE Dupplex US Patient without leukocytosis LLE Dupplex US negative for DVT or clot DVT/PE less likely at this time. However, given the proximity to the onset of her symptoms and the scan, the patient should undergo a repeat US in 2-3 to re- evaluate for DVT. Plan: Discussed with patient and agreed on the patient going home and to have a follow up LLE US in 2-3 days to ensure findings stable. The patient was also given strict return precautions as well as follow up instruction for which she voiced understanding. Dispo: Home, stable with follow up and strict return precautions given *DC/Admit/Observation/Transfer Diagnosis at time of Disposition: Pain of left calf - Discharge Dispostion Disposition: HOME Condition at time of disposition: Stable Decision to Admit order: No - Referrals Referrals: Salinas Calvert MD [Primary Care Provider] - - Patient Instructions Printed Discharge Instructions: DI for Deep Vein Thrombosis Additional Instructions: You were seen in the Emergency Department today for evaluation of left calf pain and possible DVT. Please refer to the printed handout. Additionally, you should have a repeat ultrasound of your left leg in 3-4 days and follow up with your PCP as well. Return to the Emergency Department if you experience worsening left leg swelling, reddness, fever, shortness of breath, chest pain, or changes in vision. - Post Discharge Activity
[2017-12-24 15:34] LABS: INR 1.01 (0.82-1.09); PROTHROMBIN TIME (PATIENT) 11.4 SEC (9.7-13.0)
[2017-12-24 15:37] LABS: ACTIVATED PTT 32.7 SECONDS (25.2-36.5); ANION GAP 6 (8-16); BLOOD UREA NITROGEN 7 mg/dL (7-18); CALCIUM 9.1 mg/dL (8.5-10.1); CHLORIDE 104 mmol/L (98-107); CO2 30 mmol/L (21-32); CREATININE 0.6 mg/dL (0.55-1.02); GLUCOSE,RANDOM 88 mg/dL (74-106); POTASSIUM 4.3 mmol/L (3.5-5.1); SODIUM 140 mmol/L (136-145)
[2017-12-24 17:04] VITALS: BP 136/90; PULSE 82
== END 2017-12-24 17:04 | disposition home or self-care (01) ==
LOC: JER 13:44 → SUPCPDRO 13:44 → JER 17:04
DX: M79.662 Pain in left lower leg (principal); D50.9 Iron deficiency anemia, unspecified
CPT/HCPCS: 36415; 71045-TC-FY; 80048; 85027; 85610; 85730; 93971-TC; 99282-25

== ENCOUNTER 2018-05-18 06:50 | Day surgery (SDC) | payer BC, OTHER ==
[2018-05-18 07:55] VITALS: BMI 42.3
[2018-05-18 09:33] VITALS: TEMP 98.5
--- NOTE | 2018-05-18 09:44 | OP ---
DATE OF OPERATION: 05/18/2018 SURGEON: Ovidio Short MD PROCEDURE: Upper endoscopy/esophagogastroduodenoscopy. POSTOPERATIVE DIAGNOSIS: Dilated gastric outlet, diameter 3 cm. ANESTHESIA: MAC. SPECIMEN: None. ESTIMATED BLOOD LOSS: None. 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 She was noted to have weight regain and to evaluate for dilated gastric outlet and pouch. An upper endoscopy/EGD was scheduled. The risks and benefits of the procedure were explained. These included bleeding; infection; injury to surrounding structures including the oral cavity, esophagus, GE junction, gastric pouch, jejunum; perforation; AL; DVT; PE; stricture as some of the complications. She then signed informed consent. DESCRIPTION OF PROCEDURE: Patient was placed in the left lateral decubitus position. MAC was given by Anesthesia. Timeout was performed. The endoscope was placed into the patient's mouth and advanced to the esophagus, GE junction, gastric pouch, up to the level of the gastric outlet. The gastric outlet was noted to be dilated to a diameter of approximately 3 cm, consistent with a reason for weight regain. The was then suctioned and the endoscope fully removed. Patient tolerated the procedure well, was transferred to recovery room in stable condition. OVIDIO SHORT M.D. [id number]
[2018-05-18 10:11] VITALS: BP 135/86; PULSE 79
== END 2018-05-18 10:11 | disposition home or self-care (01) ==
LOC: JASU-ENDO 06:50
PROVIDERS: ATTEND Surgery
PROC: 0DJ08ZZ Inspection of Upper Intestinal Tract, Via Natural or Artificial Opening Endoscopic (ICD-10-PCS; principal; 2018-05-18 08:30)
DX: E66.01 Morbid (severe) obesity due to excess calories (principal); Z98.84 Bariatric surgery status
CPT/HCPCS: 84703

== ENCOUNTER 2019-03-12 07:50 | Emergency (ER) | payer BC, OTHER ==
[2019-03-12 08:00] VITALS: BMI 42.2
--- NOTE | 2019-03-12 08:03 | PDOC ---
History of Present Illness - General Chief Complaint: Edema Stated Complaint: LEG SWOLLEN Time Seen by Provider: 03/12/19 08:02 Past History - Past Medical History Allergies/Adverse Reactions: Allergies Allergy/AdvReac Type Severity Reaction Status Date / Time ciprofloxacin [From Cipro] Allergy Severe Rash Verified 03/12/19 07:55 Home Medications: Ambulatory Orders NK [No Known Home Medication] 05/18/18 Anemia: Yes (IRON DEFICIENCY) Asthma: No Cancer: No Cardiac Disorders: No CVA: No COPD: No CHF: No Dementia: No Diabetes: No GI Disorders: No Disorders: No HTN: No Hypercholesterolemia: No Liver Disease: No Seizures: No Thyroid Disease: No - Surgical History Abdominal Surgery: Yes (UMBILICAL HERNIA - PT HAS MESS) Appendectomy: (GASTRIC BYPASS;LAP BAND 02/21-BAND REMOVED) Cardiac Surgery: No Cholecystectomy: No Lung Surgery: No Neurologic Surgery: No Orthopedic Surgery: Yes (LT KNEE MENISCUS REPAIR) - Immunization History Immunization Up to Date: Yes - Psycho Social/Smoking Cessation Hx Smoking History: Never smoked Have you smoked in the past 12 months: No Hx Alcohol Use: No Drug/Substance Use Hx: No Substance Use Type: None Hx Substance Use Treatment: No *Physical Exam - Vital Signs Last Vital Signs Temp Pulse Resp BP Pulse Ox 98.3 F 103 H 18 120/90 97 03/12/19 07:57 03/12/19 07:57 03/12/19 07:57 03/12/19 07:57 03/12/19 07:57 Discharge - Follow up/Referral Referrals: Salinas Calvert MD [Primary Care Provider] - - Patient Discharge Instructions - Post Discharge Activity
--- NOTE | 2019-03-12 08:42 | PDOC ---
History of Present Illness - General Chief Complaint: Edema Stated Complaint: LEG SWOLLEN Time Seen by Provider: 03/12/19 08:02 - History of Present Illness Initial Comments: 03/12/19 08:37 48 y/o F hx of P.E & DVT s/p surgery in 2012 and not on anticoagulation, presents to the ER with 2 weeks of left leg swelling and 2 days of pain behind her left knee. She denies any precipitating event 2wks ago i.e (trauma, fall). Swelling has not improved with rest and elevation and pain began yesterday. pain is temporarily relieved with tylenol and massage and exacerbated by movement. She is able to bear weight on affected leg but does so with a limp. She denies any fevers, chills, trauma, oral contraceptive use, hormone use, recent long travel/period of inactivity, shortness of breath or pleuritic chest pain. She endorses a non-productive cough which she has had since yesterday. Past History - Past Medical History Allergies/Adverse Reactions: Allergies Allergy/AdvReac Type Severity Reaction Status Date / Time ciprofloxacin [From Cipro] Allergy Severe Rash Verified 03/12/19 07:55 Home Medications: Ambulatory Orders NK [No Known Home Medication] 05/18/18 Anemia: Yes (IRON DEFICIENCY) Asthma: No Cancer: No Cardiac Disorders: No CVA: No COPD: No CHF: No Dementia: No Diabetes: No GI Disorders: No Disorders: No HTN: No Hypercholesterolemia: No Liver Disease: No Seizures: No Thyroid Disease: No - Surgical History Abdominal Surgery: Yes (UMBILICAL HERNIA - PT HAS MESS) Appendectomy: (GASTRIC BYPASS;LAP BAND 02/21-BAND REMOVED) Cardiac Surgery: No Cholecystectomy: No Lung Surgery: No Neurologic Surgery: No Orthopedic Surgery: Yes (LT KNEE MENISCUS REPAIR) - Immunization History Immunization Up to Date: Yes - Psycho Social/Smoking Cessation Hx Smoking History: Never smoked Have you smoked in the past 12 months: No Hx Alcohol Use: No Drug/Substance Use Hx: No Substance Use Type: None Hx Substance Use Treatment: No Review of Systems - Review of Systems Constitutional: No: Chills, Fever HEENTM: No: Eye Pain, Blurred Vision Respiratory: Yes: Cough. No: Orthopnea, Shortness of Breath Cardiac (ROS): No: Chest Pain ABD/GI: No: Nausea, Vomiting : No: Burning, Dysuria Musculoskeletal: No: Back Pain Integumentary: No: Bruising, Rash Neurological: No: Headache, Numbness *Physical Exam - Vital Signs Last Vital Signs Temp Pulse Resp BP Pulse Ox 98.3 F 103 H 18 120/90 97 03/12/19 07:57 03/12/19 07:57 03/12/19 07:57 03/12/19 07:57 03/12/19 07:57 - Physical Exam Comments: 03/12/19 08:44 GENERAL: Awake, alert, and fully oriented, in no acute distress HEAD: No signs of trauma, normocephalic, atraumatic EYES: EOMI, sclera anicteric, conjunctiva clear ENT: Auricles normal inspection, hearing grossly normal, nares patent, oropharynx clear without exudates. Moist mucosa NECK: Normal ROM, supple, no lymphadenopathy, JVD, or masses LUNGS: No distress, speaks full sentences, clear to auscultation bilaterally HEART: Regular rate and rhythm, normal S1 and S2, no murmurs, rubs or gallops, peripheral pulses normal and equal bilaterally. ABDOMEN: Soft, nontender, normoactive bowel sounds. No guarding, no rebound. No masses EXTREMITIES : Left pedal and ankle swelling, no erythema or rash. no bony point tenderness. 4/5 strength in left vs right. full range of motion no decrease in sensation. 2+ pedal pulses bilaterally. NEUROLOGICAL: Cranial nerves II through XII grossly intact. Normal speech, bearing weight on left knee but with a limp, no focal sensorimotor deficits SKIN: Warm, Dry, normal turgor, no rashes or lesions noted 03/12/19 08:46 ED Treatment Course - LABORATORY CBC & Chemistry Diagram: 03/12/19 09:15 03/12/19 09:15 - RADIOLOGY Radiology Studies Ordered: Category Date Time Status DUPLEX VASCUL US-1 LEG [US] Stat Ultrasound 03/12/19 08:35 Ordered Medical Decision Making - Medical Decision Making 03/12/19 08:47 48 y/o F hx of P.E & DVT s/p surgery in 2012 and not on anticoagulation, presents to the ER with 2 weeks of left leg swelling and 2 days of pain duplex u/s of left leg urine pregancy test. cbc, cmp, pt/inr, ptt, chest cta 03/12/19 09:10 03/12/19 11:07 EKG: normal sinus rhythm, normal EKG 03/12/19 11:49 chest CTA no evidence of pulmonary emboulus within pulmonary artery and it's proximal branches bilaterally 3mm calcified granuloma again seen in the right lung base laterallly no enlarged mediastinal or hilar lymph nodes identified small hiatus hernia with post op sutures seen U/S report pending. 03/12/19 11:50 no evidence of dvt. 03/12/19 11:59 Splint placed on patients ankle (air splint). Given instructions to RICE and can use tylenol /ibuprofen for pain. Discharge - Discharge Information Problems reviewed: Yes Clinical Impression/Diagnosis: Leg swelling Condition: Good Disposition: HOME - Admission No - Follow up/Referral Referrals: Salinas Calvert MD [Primary Care Provider] - - Patient Discharge Instructions Patient Printed Discharge Instructions: DI for Leg Pain Additional Instructions: You were seen in the ER for swelling in your left ankle and foot. We did not find any clots on your CT or leg ultrasound Your foot has been placed in a splint for support and comfort. Keep your weight of that leg as much as possible. Rest, Ice and Compress and Elevate the leg, You can use tylenol/ibuprofen as needed for pain. Be sure to follow all medication instructions and dosing as per label instructions. Return to the ER if you experience -increased swelling and redness -pain that worsens and is not relieved by tylenol/ibuprofen -If you develop fevers/chills. - Post Discharge Activity
[2019-03-12] MEDS ORDERED: SODIUM CHLORIDE 0.9% 500 ML INFUS.BAG IV ONE (09:05)
--- NOTE | 2019-03-12 09:14 | PDOC ---
Attending Attestation - Resident Resident Name: PriyankaseleneStevenvictor manuel - ED Attending Attestation I have performed the following: I have examined & evaluated the patient, The case was reviewed & discussed with the resident, I agree w/resident's findings & plan, Exceptions are as noted - HPI HPI: 03/12/19 09:10 48 F with h/o provoked DVT/PE 6 years ago after surgery, not currently on AC, presenting with 2 weeks of LLE swelling. Pt denies any recent immobilization, no surgeries, no travel. Denies CP/SOB but endorses dry cough x 2 days. - Physicial Exam PE: 03/12/19 09:12 "GENERAL: Awake, alert, and fully oriented, in no acute distress. HEAD: No signs of trauma EYES: PERRLA, EOMI, sclera anicteric, conjunctiva clear ENT: Auricles normal inspection, hearing grossly normal, nares patent, oropharynx clear without exudates. Moist mucosa NECK: Nontender, no stepoffs, Normal ROM, supple, no lymphadenopathy, JVD, or masses LUNGS: Breath sounds equal, clear to auscultation bilaterally. No wheezes, and no crackles HEART: Regular rate and rhythm, normal S1 and S2, no murmurs, rubs or gallops ABDOMEN: Soft, nontender, normoactive bowel sounds. No guarding, no rebound. No masses EXTREMITIES: +1 edema LLE, No clubbing or cyanosis. No cords, erythema, or tenderness NEUROLOGICAL: Cranial nerves II through XII intact. 5/5 strength and sensation in all extremities, Normal speech, normal gait, normal cerebellar function SKIN: Warm, Dry, normal turgor, no rashes or lesions noted. - Medical Decision Making 03/12/19 09:13 48 F with LLE swelling and cough. Pt has h/o prior DVT and PE. Vitals notable for mild tachycardia. - Labs - Doppler - CTA chest 03/12/19 11:49 CTA and doppler wnl Pt with microcytic anemia, similar to previous labs Pt is well appearing, with normal vitals. Clinically stable for DC at this time. I discussed the physical exam findings, ancillary test results and final diagnoses with the patient. I answered all of the patient's questions. The patient was satisfied with the care received and felt comfortable with the discharge plan and treatment plan. The patient agrees to follow up with the primary care physician within 24-72 hours.
[2019-03-12 09:32] LABS: HEMATOCRIT 32.6 % (32.4-45.2); HEMOGLOBIN 9.9 GM/dL (10.7-15.3); LYMPH % 25.4 % (8-40); MCH 20.5 pg (25.7-33.7); MCHC 30.4 g/dl (32.0-36.0); MEAN CELL VOLUME 67.4 fl (80-96); MEAN PLT VOLUME 7.7 fl (7.5-11.1); MONO % 11.7 % (3.8-10.2); NEUT % 59.9 % (42.8-82.8); PLATELET COUNT 401 K/MM3 (134-434); RBC 4.83 M/mm3 (3.60-5.2)
[2019-03-12 09:57] LABS: ALBUMIN 3.6 g/dl (3.4-5.0); BILIRUBIN,TOTAL 0.3 mg/dL (0.2-1); BLOOD UREA NITROGEN 9.7 mg/dL (7-18); CREATININE 0.5 mg/dL (0.55-1.3); POTASSIUM 3.8 mmol/L (3.5-5.1); TOT PROT 7.4 g/dl (6.4-8.2)
[2019-03-12 10:46] LABS: INR 0.89 (0.83-1.09); PROTHROMBIN TIME (PATIENT) 10.5 SEC (9.7-13.0)
[2019-03-12 12:45] VITALS: BP 128/81; PULSE 86; TEMP 98.1
[2019-03-12 13:29] LABS: ANISOCYTOSIS 2+; MACROCYTOSIS 0; OVALOCYTE 1+; PLATELET ESTIMATE NORMAL
--- NOTE | 2019-03-13 11:42 | EKG ---
Test Reason : Blood Pressure : / mmHG Vent. Rate : 090 BPM Atrial Rate : 090 BPM P-R Int : 140 ms QRS Dur : 084 ms QT Int : 372 ms P-R-T Axes : 047 021 028 degrees QTc Int : 455 ms NORMAL SINUS RHYTHM NORMAL ECG NO PREVIOUS ECGS AVAILABLE Confirmed by MAGDY GONSALEZ MD ([id number]) on 03/13/2019 11:42:43 AM Referred By: Confirmed By:MAGDY GONSALEZ MD
== END 2019-03-12 12:20 | disposition home or self-care (01) ==
LOC: JER 07:50
DX: M79.89 Other specified soft tissue disorders (principal); R22.42 Localized swelling, mass and lump, left lower limb; Z86.718 Personal history of other venous thrombosis and embolism; Z86.711 Personal history of pulmonary embolism; D50.9 Iron deficiency anemia, unspecified; Z98.84 Bariatric surgery status; Z88.1 Allergy status to other antibiotic agents
CPT/HCPCS: 36415; 71275-TC; 80053; 84703; 85025; 85610; 85730; 93005; 93010; 93971-TC; 99283-25

== ENCOUNTER 2021-05-23 10:48 | Emergency (ER) | payer BC, OTHER ==
[2021-05-23 11:16] VITALS: BP 109/73; TEMP 98.8; BMI 42.3
[2021-05-23] MEDS ORDERED: SODIUM CHLORIDE 0.9% 500 ML INFUS.BAG IV ONE (11:44)
[2021-05-23] MEDS ORDERED: KETOROLAC TROMETHAMINE 15 MG/ML VIAL IVPUSH ONE (12:23)
[2021-05-23] MEDS ORDERED: ONDANSETRON 4 MG/2 ML VIAL IVPUSH ONE (12:23)
[2021-05-23 12:30] LABS: BASO % 0.3 % (0-2.0); EOS % 0.1 % (0-4.5); HEMATOCRIT 40.5 % (32.4-45.2); HEMOGLOBIN 13.4 GM/dL (10.7-15.3); LYMPH % 6.3 % (8-40); MCH 29.2 pg (25.7-33.7); MCHC 33.1 g/dl (32.0-36.0); MEAN PLT VOLUME 8.1 fl (7.5-11.1); MONO % 21.3 % (3.8-10.2); PLATELET COUNT 224 10^3/uL (134-434); RDW 14.5 % (11.6-15.6); WHITE BLOOD COUNT 9.3 K/mm3 (4.0-10.0)
[2021-05-23 12:35] LABS: INR 1.09 (0.83-1.09); PROTHROMBIN TIME (PATIENT) 12.8 SEC (9.7-13.0)
[2021-05-23 12:37] LABS: CHLORIDE 101 mmol/L (98-107); SODIUM 137 mmol/L (136-145)
[2021-05-23] MEDS ORDERED: ONDANSETRON 4 MG/2 ML VIAL ONE (12:37)
[2021-05-23 12:38] LABS: ACTIVATED PTT 28.1 SECONDS (25.2-36.5)
[2021-05-23 12:40] LABS: ALBUMIN 2.6 g/dl (3.4-5.0); ANION GAP 10 MMOL/L (8-16); BLOOD UREA NITROGEN 9.9 mg/dL (7-18); CO2 26 mmol/L (21-32); GLUCOSE,RANDOM 104 mg/dL (74-106)
[2021-05-23] MEDS ORDERED: KETOROLAC TROMETHAMINE 30 MG/1 ML VIAL ONE (12:40)
[2021-05-23 12:41] LABS: LIPASE 56 U/L (73-393)
[2021-05-23 12:43] LABS: CREATININE 0.7 mg/dL (0.55-1.3); SGOT/AST 17 U/L (15-37); SGPT/ALT 16 U/L (13-61)
[2021-05-23 12:45] LABS: BILIRUBIN,TOTAL 1.1 mg/dL (0.2-1); TOT PROT 6.7 g/dl (6.4-8.2)
[2021-05-23 12:46] LABS: ALK PHOS 75 U/L (45-117)
[2021-05-23 13:19] LABS: ANISOCYTOSIS 1+; PLATELET ESTIMATE NORMAL
[2021-05-23 13:32] VITALS: PULSE 91
== END 2021-05-23 13:57 | disposition home or self-care (01) ==
LOC: JER 10:48
PROC: 3E033GC Introduction of Other Therapeutic Substance into Peripheral Vein, Percutaneous Approach (ICD-10-PCS; principal; 2021-05-23)
DX: J06.9 Acute upper respiratory infection, unspecified (principal)
CPT/HCPCS: 36415; 71045-TC-FY; 80053; 82550; 83690; 84484; 84703; 85025; 85610; 85730; 87804; 93005; 93010; 99285-25; C9803; U0003; U0005

== ENCOUNTER 2022-08-14 17:54 | Inpatient (IN) | payer BC, OTHER ==
[2022-08-14] MEDS ORDERED: SODIUM CHLORIDE 0.9% 500 ML INFUS.BAG IV ONE (20:27)
[2022-08-14] MEDS ORDERED: ONDANSETRON 4 MG/2 ML VIAL IVPUSH ONE (20:27)
[2022-08-14] MEDS ORDERED: ONDANSETRON 4 MG/2 ML VIAL ONE (20:36)
[2022-08-14 21:54] LABS: BASO % 2.6 % (0-2.0); EOS % 0.4 % (0-4.5); HEMOGLOBIN 11.6 GM/dL (10.7-15.3); LYMPH % 15.2 % (8-40); MCH 30.3 pg (25.7-33.7); MEAN CELL VOLUME 91.9 fl (80-96); MONO % 8.9 % (3.8-10.2); NEUT % 72.9 % (42.8-82.8); PLATELET COUNT 310 10^3/uL (134-434); RBC 3.81 M/mm3 (3.60-5.2); RDW 17.1 % (11.6-15.6); WHITE BLOOD COUNT 6.9 K/mm3 (4.0-10.0)
[2022-08-14 22:16] LABS: CALCIUM 8.4 mg/dL (8.5-10.1)
[2022-08-14 22:17] LABS: ALBUMIN 2.6 g/dl (3.4-5.0); BLOOD UREA NITROGEN 3.2 mg/dL (7-18); MAGNESIUM 1.5 mg/dL (1.8-2.4)
[2022-08-14 22:20] LABS: CREATININE 0.6 mg/dL (0.55-1.3); PHOSPHOROUS 3.4 mg/dL (2.5-4.9)
[2022-08-14 22:21] LABS: BILIRUBIN,TOTAL 2.2 mg/dL (0.2-1); TOT PROT 6.5 g/dl (6.4-8.2)
[2022-08-14] MEDS ORDERED: LACTATED RINGERS SOLUTION 1000 ML INFUS.BAG IV ONE (22:35)
[2022-08-14] MEDS ORDERED: METOCLOPRAMIDE HCL INJECTION 10 MG/2 ML VIAL IVPB ONE (22:35)
[2022-08-14] MEDS ORDERED: METOCLOPRAMIDE HCL INJECTION 10 MG/2 ML VIAL ONE (22:38)
[2022-08-15] MEDS ORDERED: METOCLOPRAMIDE HCL INJECTION 10 MG/2 ML VIAL IVPB ONE (01:58)
[2022-08-15] MEDS ORDERED: CEFTRIAXONE 1,000 MG in DEXTROSE 5%-WATER - 50 ML IVPB ONE (02:37)
[2022-08-15] MEDS ORDERED: KCL 10 MEQ IVPB 30 MEQ/300 ML INFUS.BAG IVPB ONE (02:37)
[2022-08-15] MEDS: KCL 10 MEQ IVPB 10 MEQ/100 ML INFUS.BAG IVPB SCH ×7 (03:08→21:57)
[2022-08-15] MEDS: LACTATED RINGERS SOLUTION 1,000 ML/1,000 ML INFUS.BAG IV SCH ×3 (03:08→23:32)
[2022-08-15] MEDS ORDERED: METOCLOPRAMIDE HCL INJECTION 10 MG/2 ML VIAL ONE (03:09)
[2022-08-15] MEDS ORDERED: CEFTRIAXONE 1 GM/50 ML BAG ONE (03:10)
[2022-08-15] MEDS ORDERED: ONDANSETRON 4 MG/2 ML VIAL ONE (06:22)
[2022-08-15] MEDS ORDERED: ONDANSETRON 4 MG/2 ML VIAL IVPUSH ONE (06:22)
[2022-08-15] MEDS ORDERED: POTASSIUM CHLORIDE 20 MEQ PREMIX IVPB 100 ML IVPB ONE ×2 (07:09→19:34)
[2022-08-15] MEDS ORDERED: MAGNESIUM 1GM/D5W 100ML - 100 ML IVPB IVPB ONE (07:30)
[2022-08-15] MEDS ORDERED: KCL 10 MEQ IVPB 10 MEQ/100 ML INFUS.BAG IVPB SCH (08:30)
[2022-08-15] MEDS ORDERED: MAGNESIUM 1GM/D5W - 1 GM/100 ML IVPB IVPB ONE (08:38)
[2022-08-15 09:06] LABS: BASO % 0.3 % (0-2.0); HEMATOCRIT 30.1 % (32.4-45.2); HEMOGLOBIN 10.1 GM/dL (10.7-15.3); LYMPH % 17.3 % (8-40); MCH 31.3 pg (25.7-33.7); MCHC 33.4 g/dl (32.0-36.0); MEAN CELL VOLUME 93.6 fl (80-96); MEAN PLT VOLUME 8.9 fl (7.5-11.1); MONO % 13.7 % (3.8-10.2); NEUT % 67.7 % (42.8-82.8); PLATELET COUNT 224 10^3/uL (134-434); RBC 3.22 M/mm3 (3.60-5.2)
[2022-08-15 09:09] LABS: CHLORIDE 101 mmol/L (98-107); SODIUM 136 mmol/L (136-145)
[2022-08-15 09:11] LABS: ALBUMIN 2.1 g/dl (3.4-5.0); ANION GAP 5 MMOL/L (8-16); CALCIUM 7.6 mg/dL (8.5-10.1); CO2 30 mmol/L (21-32)
[2022-08-15 09:12] LABS: GLUCOSE,RANDOM 97 mg/dL (74-106)
[2022-08-15 09:14] LABS: CREATININE 0.4 mg/dL (0.55-1.3); SGPT/ALT 104 U/L (13-61)
[2022-08-15 09:15] LABS: SGOT/AST 282 U/L (15-37)
[2022-08-15 09:16] LABS: BILIRUBIN,TOTAL 1.3 mg/dL (0.2-1); TOT PROT 5.3 g/dl (6.4-8.2)
[2022-08-15 09:18] LABS: ALK PHOS 142 U/L (45-117); BLOOD UREA NITROGEN 2.2 mg/dL (7-18)
[2022-08-15] MEDS: PANTOPRAZOLE SODIUM 40 MG VIAL IVPUSH SCH (09:55)
[2022-08-15 10:09] VITALS: BMI 39.6
[2022-08-15] MEDS ORDERED: ONDANSETRON 4 MG/2 ML VIAL IVPUSH PRN (12:41)
[2022-08-15] MEDS: ACETAMINOPHEN 325 MG TABLET (FP) PO PRN (17:03)
[2022-08-15] MEDS: TRIMETHOBENZAMIDE HCL 200MG/2ML INJ IM PRN (20:04)
[2022-08-15] MEDS: ZOLPIDEM TARTRATE 5 MG TABLET PO SCH (21:57)
[2022-08-16] MEDS: LACTATED RINGERS SOLUTION 1,000 ML/1,000 ML INFUS.BAG IV SCH ×2 (09:30→17:27)
[2022-08-16] MEDS: PANTOPRAZOLE SODIUM 40 MG VIAL IVPUSH SCH (09:30)
[2022-08-16] MEDS: TRIMETHOBENZAMIDE HCL 200MG/2ML INJ IM PRN (09:43)
[2022-08-16] MEDS: ACETAMINOPHEN 325 MG TABLET (FP) PO PRN (10:57)
[2022-08-16 11:03] LABS: BASO % 1.5 % (0-2.0); EOS % 2.9 % (0-4.5); HEMATOCRIT 30.9 % (32.4-45.2); HEMOGLOBIN 10.2 GM/dL (10.7-15.3); LYMPH % 26.4 % (8-40); MCH 31.3 pg (25.7-33.7); MCHC 33.2 g/dl (32.0-36.0); MEAN CELL VOLUME 94.3 fl (80-96); MEAN PLT VOLUME 8.7 fl (7.5-11.1); MONO % 17.1 % (3.8-10.2); NEUT % 52.1 % (42.8-82.8); PLATELET COUNT 225 10^3/uL (134-434); RBC 3.27 M/mm3 (3.60-5.2); RDW 17.2 % (11.6-15.6)
[2022-08-16 11:22] LABS: CHLORIDE 104 mmol/L (98-107); SODIUM 142 mmol/L (136-145)
[2022-08-16 11:24] LABS: CALCIUM 8.2 mg/dL (8.5-10.1)
[2022-08-16 11:25] LABS: ALBUMIN 2.1 g/dl (3.4-5.0); ANION GAP 8 MMOL/L (8-16); CO2 30 mmol/L (21-32); GLUCOSE,RANDOM 80 mg/dL (74-106)
[2022-08-16 11:28] LABS: CREATININE 0.5 mg/dL (0.55-1.3); SGOT/AST 137 U/L (15-37); SGPT/ALT 79 U/L (13-61)
[2022-08-16 11:30] LABS: BILIRUBIN,TOTAL 1.3 mg/dL (0.2-1); TOT PROT 5.4 g/dl (6.4-8.2)
[2022-08-16 11:31] LABS: ALK PHOS 135 U/L (45-117)
[2022-08-16 12:32] LABS: BLOOD UREA NITROGEN 1.4 mg/dL (7-18)
[2022-08-16] MEDS ORDERED: KCL 10 MEQ IVPB 10 MEQ/100 ML INFUS.BAG IVPB SCH (12:45)
[2022-08-16] MEDS: METOCLOPRAMIDE HCL 10 MG TABLET (FP) PO SCH (16:33)
[2022-08-16] MEDS: ZOLPIDEM TARTRATE 5 MG TABLET PO SCH (22:24)
[2022-08-17] MEDS: METOCLOPRAMIDE HCL 10 MG TABLET (FP) PO SCH ×3 (06:44→17:18)
[2022-08-17] MEDS: LACTATED RINGERS SOLUTION 1,000 ML/1,000 ML INFUS.BAG IV SCH (08:05)
[2022-08-17 09:19] LABS: BASO % 1.2 % (0-2.0); HEMATOCRIT 36.9 % (32.4-45.2); HEMOGLOBIN 11.8 GM/dL (10.7-15.3); LYMPH % 29.7 % (8-40); MCHC 31.9 g/dl (32.0-36.0); MEAN CELL VOLUME 93.9 fl (80-96); MEAN PLT VOLUME 8.9 fl (7.5-11.1); MONO % 11.6 % (3.8-10.2); NEUT % 51.5 % (42.8-82.8); PLATELET COUNT 267 10^3/uL (134-434); RBC 3.93 M/mm3 (3.60-5.2); RDW 17.5 % (11.6-15.6); WHITE BLOOD COUNT 6.9 K/mm3 (4.0-10.0)
[2022-08-17 09:29] LABS: CHLORIDE 105 mmol/L (98-107); SODIUM 142 mmol/L (136-145)
[2022-08-17 09:37] LABS: CALCIUM 8.7 mg/dL (8.5-10.1); GLUCOSE,RANDOM 95 mg/dL (74-106)
[2022-08-17 09:38] LABS: ANION GAP 7 MMOL/L (8-16); CO2 30 mmol/L (21-32); MAGNESIUM 1.8 mg/dL (1.8-2.4)
[2022-08-17 09:40] LABS: CREATININE 0.5 mg/dL (0.55-1.3); SGOT/AST 104 U/L (15-37); SGPT/ALT 78 U/L (13-61)
[2022-08-17 09:41] LABS: TOT PROT 6.3 g/dl (6.4-8.2)
[2022-08-17 09:42] LABS: BILIRUBIN,TOTAL 1.1 mg/dL (0.2-1)
[2022-08-17 09:43] LABS: ALK PHOS 157 U/L (45-117)
[2022-08-17 09:45] LABS: ALBUMIN 2.5 g/dl (3.4-5.0); BLOOD UREA NITROGEN 2.4 mg/dL (7-18)
[2022-08-17] MEDS: PANTOPRAZOLE SODIUM 40 MG VIAL IVPUSH SCH (10:10)
[2022-08-17] MEDS ORDERED: ZOLPIDEM TARTRATE 5 MG TABLET PO PRN (12:42)
[2022-08-17 14:40] LABS: CHLORIDE 105 mmol/L (98-107); SODIUM 141 mmol/L (136-145)
[2022-08-17 14:42] LABS: ALBUMIN 2.1 g/dl (3.4-5.0); ANION GAP 5 MMOL/L (8-16); CO2 31 mmol/L (21-32); GLUCOSE,RANDOM 121 mg/dL (74-106)
[2022-08-17 14:45] LABS: CREATININE 0.6 mg/dL (0.55-1.3); SGPT/ALT 62 U/L (13-61)
[2022-08-17 14:46] LABS: SGOT/AST 80 U/L (15-37)
[2022-08-17 14:47] LABS: BILIRUBIN,TOTAL 0.8 mg/dL (0.2-1); TOT PROT 5.3 g/dl (6.4-8.2)
[2022-08-17 14:48] LABS: ALK PHOS 148 U/L (45-117)
[2022-08-17 14:50] LABS: BLOOD UREA NITROGEN 2.5 mg/dL (7-18)
[2022-08-17] MEDS: ZOLPIDEM TARTRATE 5 MG TABLET PO SCH (21:49)
[2022-08-18] MEDS: METOCLOPRAMIDE HCL 10 MG TABLET (FP) PO SCH ×2 (06:19→11:17)
[2022-08-18] MEDS: PANTOPRAZOLE SODIUM 40 MG VIAL IVPUSH SCH (09:24)
[2022-08-18 09:37] LABS: HEMATOCRIT 36.4 % (32.4-45.2); HEMOGLOBIN 11.7 GM/dL (10.7-15.3); MCH 30.3 pg (25.7-33.7); MCHC 32.2 g/dl (32.0-36.0); MEAN CELL VOLUME 94.1 fl (80-96); PLATELET COUNT 219 10^3/uL (134-434); RBC 3.86 M/mm3 (3.60-5.2); RDW 17.8 % (11.6-15.6); WHITE BLOOD COUNT 6.4 K/mm3 (4.0-10.0)
[2022-08-18 09:41] LABS: BASO % 1.2 % (0-2.0); HEMATOCRIT 35.8 % (32.4-45.2); HEMOGLOBIN 11.7 GM/dL (10.7-15.3); LYMPH % 21.7 % (8-40); MCH 30.5 pg (25.7-33.7); MCHC 32.7 g/dl (32.0-36.0); MEAN CELL VOLUME 93.4 fl (80-96); MEAN PLT VOLUME 8.8 fl (7.5-11.1); NEUT % 58.1 % (42.8-82.8); PLATELET COUNT 224 10^3/uL (134-434); RBC 3.83 M/mm3 (3.60-5.2); RDW 17.9 % (11.6-15.6); WHITE BLOOD COUNT 6.1 K/mm3 (4.0-10.0)
[2022-08-18] MEDS ORDERED: amLODIPine BESYLATE 5 MG TABLET (FP) PO SCH (10:00)
[2022-08-18] MEDS ORDERED: CITALOPRAM HYDROBROMIDE 10 MG TABLET PO SCH (10:00)
[2022-08-18 10:02] LABS: CHLORIDE 104 mmol/L (98-107); SODIUM 140 mmol/L (136-145)
[2022-08-18 10:13] LABS: ANION GAP 9 MMOL/L (8-16); CALCIUM 8.6 mg/dL (8.5-10.1); CO2 28 mmol/L (21-32); GLUCOSE,RANDOM 133 mg/dL (74-106)
[2022-08-18 10:16] LABS: CREATININE 0.6 mg/dL (0.55-1.3)
[2022-08-18 10:26] LABS: BLOOD UREA NITROGEN 2.1 mg/dL (7-18)
[2022-08-18 12:31] VITALS: RESP 20
[2022-08-18 14:47] VITALS: BP 138/81; PULSE 95; TEMP 97.6
== END 2022-08-18 16:09 | disposition home health service (06) | DRG 373 ==
LOC: JER 17:54 → JERBED 08-15 02:31 → J5S 08-15 09:33 → J8W 08-16 21:43
PROVIDERS: ADMIT Family Medicine; ATTEND Family Medicine
DX: A04.72 Enterocolitis due to Clostridium difficile, not specified as recurrent (principal); R19.7 Diarrhea, unspecified; E66.9 Obesity, unspecified; K70.10 Alcoholic hepatitis without ascites; F10.10 Alcohol abuse, uncomplicated; R79.89 Other specified abnormal findings of blood chemistry; R74.01 Elevation of levels of liver transaminase levels; K76.0 Fatty (change of) liver, not elsewhere classified; Z86.711 Personal history of pulmonary embolism; Z86.718 Personal history of other venous thrombosis and embolism; Z68.39 Body mass index [BMI] 39.0-39.9, adult; Z98.84 Bariatric surgery status
CPT/HCPCS: 0241U-QW; 36415; 74177-TC; 76705-TC; 80048; 80053; 83690; 83735; 84100; 84703; 85025; 85027; 86140; 87045; 87046; 87209; 87324; 87328; 87329; 87449; 87493; 93005; 93010; 99285-25

== ENCOUNTER 2022-10-02 13:02 | Inpatient (IN) | payer BC, OTHER ==
[2022-10-02] MEDS ORDERED: LACTATED RINGERS SOLUTION 1000 ML INFUS.BAG IV ONE ×2 (13:52→15:35)
[2022-10-02] MEDS ORDERED: ONDANSETRON 4 MG/2 ML VIAL IVPUSH ONE (13:52)
[2022-10-02] MEDS ORDERED: ACETAMINOPHEN 1000 MG/100 ML BAG IVPB ONE (13:52)
[2022-10-02] MEDS ORDERED: FAMOTIDINE 20 MG/50 ML IVPB 20 MG/50 ML MG IVPB ONE ×2 (13:52→14:10)
[2022-10-02] MEDS ORDERED: ONDANSETRON 4 MG/2 ML VIAL ONE (14:09)
[2022-10-02] MEDS ORDERED: ACETAMINOPHEN INJECTION 100 ML IVPB ONE (14:09)
[2022-10-02 14:57] LABS: BASO % 1.2 % (0-2.0); HEMATOCRIT 34.2 % (32.4-45.2); HEMOGLOBIN 11.4 GM/dL (10.7-15.3); LYMPH % 6.2 % (8-40); MCH 32.4 pg (25.7-33.7); MCHC 33.3 g/dl (32.0-36.0); MEAN CELL VOLUME 97.3 fl (80-96); MEAN PLT VOLUME 9.3 fl (7.5-11.1); MONO % 6.4 % (3.8-10.2); NEUT % 86.2 % (42.8-82.8); PLATELET COUNT 232 10^3/uL (134-434); RBC 3.51 M/mm3 (3.60-5.2); RDW 21.4 % (11.6-15.6); WHITE BLOOD COUNT 5.2 K/mm3 (4.0-10.0)
[2022-10-02 15:05] LABS: INR 1.17 (0.83-1.09); PROTHROMBIN TIME (PATIENT) 13.5 SEC (9.7-13.0)
[2022-10-02 15:07] LABS: ACTIVATED PTT 32.1 SECONDS (25.2-36.5)
[2022-10-02 15:19] LABS: ANISOCYTOSIS 2+; MACROCYTOSIS 1+
[2022-10-02] MEDS ORDERED: METOCLOPRAMIDE HCL INJECTION 10 MG/2 ML VIAL IVPB ONE ×2 (15:21→19:33)
[2022-10-02 15:22] LABS: CALCIUM 8.5 mg/dL (8.5-10.1)
[2022-10-02 15:23] LABS: ALBUMIN 2.3 g/dl (3.4-5.0); BLOOD UREA NITROGEN 5.4 mg/dL (7-18); MAGNESIUM 1.6 mg/dL (1.8-2.4)
[2022-10-02 15:25] LABS: CREATININE 0.8 mg/dL (0.55-1.3); PHOSPHOROUS 3.6 mg/dL (2.5-4.9)
[2022-10-02 15:27] LABS: TOT PROT 6.6 g/dl (6.4-8.2)
[2022-10-02] MEDS ORDERED: METOCLOPRAMIDE HCL INJECTION 10 MG/2 ML VIAL ONE ×2 (15:27→19:36)
[2022-10-02 15:29] LABS: BILIRUBIN,TOTAL 6.1 mg/dL (0.2-1)
[2022-10-02 15:33] LABS: LACTIC ACID 8.2 mmol/L (0.4-2.0)
[2022-10-02 16:00] LABS: BILIRUBIN,DIRECT 3.7 mg/dL (0.0-0.2)
[2022-10-02] MEDS ORDERED: MAGNESIUM SULF 50% (8.12 MEQ/2 ML-1 GM VIAL) IVPB ONE (18:34)
[2022-10-02] MEDS ORDERED: MAGNESIUM SULFATE IN WATER 2 GM/50 ML IVPB IVPB ONE (18:35)
[2022-10-02] MEDS ORDERED: PIPERACILLIN/TAZOB 4.5 GM 4.5 GM in DEXTROSE 5%-WATER 100 ML IVPB ONE (18:37)
[2022-10-02] MEDS ORDERED: PIPERACILLIN/TAZOB 4.5 GM 4.5 GM/100 ML BAG IVPB ONE (18:42)
[2022-10-02 19:16] LABS: LACTIC ACID 5.7 mmol/L (0.4-2.0)
[2022-10-02 19:37] LABS: URINE COLOR DK YELLOW
[2022-10-02 19:38] LABS: URINE APPEARANCE CLEAR; URINE BILIRUBIN SMALL (NEGATIVE); URINE GLUCOSE (UA) NEGATIVE (NEGATIVE); URINE KETONE 15 mg/dl (NEGATIVE); URINE PROTEIN NEGATIVE (NEGATIVE)
[2022-10-02 19:39] LABS: URINE LEUK ESTERASE NEGATIVE (NEGATIVE); URINE NITRITE NEGATIVE (NEGATIVE)
[2022-10-02 20:10] LABS: OPIATES, URI NEGATIVE (NEGATIVE); URINE BARBITURATES NEGATIVE (NEGATIVE)
[2022-10-02 20:11] LABS: COCAINE, UR NEGATIVE (NEGATIVE); METHADONE, UR NEGATIVE (NEGATIVE); PHENCYCLIDINE,URINE NEGATIVE (NEGATIVE)
[2022-10-02 20:18] LABS: URINE AMPHETAMINES NEGATIVE (NEGATIVE); URINE BENZODIAZEPINES NEGATIVE (NEGATIVE)
[2022-10-02] MEDS: SODIUM CHLORIDE 1,000 ML IV SCH (21:41)
[2022-10-02] MEDS: SUCRALFATE 1 GM/10 ML UNIT DOSE CUPS PO SCH (21:46)
[2022-10-02] MEDS: ACETAMINOPHEN 325 MG TABLET (FP) PO PRN (23:23)
[2022-10-03 03:09] VITALS: BMI 38.1
[2022-10-03] MEDS: ACETAMINOPHEN 325 MG TABLET (FP) PO PRN (05:40)
[2022-10-03 08:53] LABS: BASO % 0.8 % (0-2.0); HEMOGLOBIN 10.4 GM/dL (10.7-15.3); LYMPH % 13.3 % (8-40); MCH 33.3 pg (25.7-33.7); MCHC 34.5 g/dl (32.0-36.0); MEAN CELL VOLUME 96.5 fl (80-96); MEAN PLT VOLUME 9.6 fl (7.5-11.1); MONO % 15.3 % (3.8-10.2); NEUT % 70.6 % (42.8-82.8); PLATELET COUNT 201 10^3/uL (134-434); RBC 3.11 M/mm3 (3.60-5.2); RDW 21.1 % (11.6-15.6); WHITE BLOOD COUNT 6.8 K/mm3 (4.0-10.0)
[2022-10-03 09:04] LABS: CALCIUM 8.1 mg/dL (8.5-10.1)
[2022-10-03 09:05] LABS: ALBUMIN 2.1 g/dl (3.4-5.0); BLOOD UREA NITROGEN 4.7 mg/dL (7-18)
[2022-10-03 09:08] LABS: CREATININE 0.9 mg/dL (0.55-1.3)
[2022-10-03 09:09] LABS: LACTIC ACID 4.3 mmol/L (0.4-2.0)
[2022-10-03 09:10] LABS: BILIRUBIN,TOTAL 5.9 mg/dL (0.2-1); TOT PROT 6.1 g/dl (6.4-8.2)
[2022-10-03] MEDS: ONDANSETRON 4 MG/2 ML VIAL IVPUSH PRN ×3 (09:11→20:53)
[2022-10-03] MEDS: SUCRALFATE 1 GM/10 ML UNIT DOSE CUPS PO SCH ×4 (09:11→21:43)
[2022-10-03] MEDS: PANTOPRAZOLE SODIUM 40 MG VIAL IVPUSH SCH (09:11)
[2022-10-03] MEDS ORDERED: LISINOPRIL 5 MG TABLET PO SCH (10:00)
[2022-10-03] MEDS ORDERED: SODIUM CHLORIDE 0.9% 1000 ML INFUS.BAG IV ONE (10:47)
[2022-10-03] MEDS: SODIUM CHLORIDE 1,000 ML IV SCH (15:53)
[2022-10-03] MEDS: chlordiazePOXIDE HCL 25 MG CAPSULE PO SCH (21:43)
[2022-10-04 09:49] LABS: CALCIUM 7.6 mg/dL (8.5-10.1)
[2022-10-04] MEDS: PANTOPRAZOLE SODIUM 40 MG VIAL IVPUSH SCH (09:49)
[2022-10-04] MEDS: SUCRALFATE 1 GM/10 ML UNIT DOSE CUPS PO SCH ×4 (09:49→21:10)
[2022-10-04] MEDS: LISINOPRIL 10 MG TABLET PO SCH (09:49)
[2022-10-04 09:50] LABS: ALBUMIN 1.8 g/dl (3.4-5.0); BLOOD UREA NITROGEN 4.9 mg/dL (7-18)
[2022-10-04 09:51] LABS: BASO % 1.1 % (0-2.0); EOS % 0.2 % (0-4.5); HEMATOCRIT 28.6 % (32.4-45.2); HEMOGLOBIN 9.6 GM/dL (10.7-15.3); LYMPH % 24.9 % (8-40); MCH 32.8 pg (25.7-33.7); MCHC 33.6 g/dl (32.0-36.0); MEAN CELL VOLUME 97.7 fl (80-96); MEAN PLT VOLUME 9.5 fl (7.5-11.1); MONO % 10.5 % (3.8-10.2); NEUT % 63.3 % (42.8-82.8); PLATELET COUNT 158 10^3/uL (134-434); RBC 2.92 M/mm3 (3.60-5.2); RDW 21.6 % (11.6-15.6); WHITE BLOOD COUNT 4.2 K/mm3 (4.0-10.0)
[2022-10-04 09:52] LABS: CREATININE 0.8 mg/dL (0.55-1.3)
[2022-10-04 09:54] LABS: BILIRUBIN,TOTAL 4.2 mg/dL (0.2-1); TOT PROT 5.4 g/dl (6.4-8.2)
[2022-10-04] MEDS: chlordiazePOXIDE HCL 25 MG CAPSULE PO SCH ×2 (10:01→21:11)
[2022-10-04] MEDS ORDERED: POTASSIUM CHLORIDE TABS 20 MEQ TABLET.ER (FP) PO ONE (10:42)
[2022-10-04] MEDS ORDERED: CIPROFLOXACIN 500 MG TABLET (RESTRICTED TO ID) PO ONE (10:55)
[2022-10-04 14:01] LABS: LACTIC ACID 2.7 mmol/L (0.4-2.0)
[2022-10-04] MEDS: NITROFURANTOIN MACROCRYSTAL 50 MG CAPSULE (FP) PO SCH (17:10)
[2022-10-04] MEDS ORDERED: AMOX TR/POT CLAV 875MG/125MG TABLETS (FP) PO SCH (17:30)
[2022-10-04] MEDS: ONDANSETRON 4 MG/2 ML VIAL IVPUSH PRN (21:11)
[2022-10-05] MEDS: NITROFURANTOIN MACROCRYSTAL 50 MG CAPSULE (FP) PO SCH ×2 (00:34→05:20)
[2022-10-05 09:29] LABS: BASO % 1.2 % (0-2.0); EOS % 0.7 % (0-4.5); HEMOGLOBIN 11.5 GM/dL (10.7-15.3); LYMPH % 27.4 % (8-40); MCH 32.6 pg (25.7-33.7); MCHC 32.9 g/dl (32.0-36.0); MEAN CELL VOLUME 99.3 fl (80-96); MONO % 10.3 % (3.8-10.2); NEUT % 60.4 % (42.8-82.8); PLATELET COUNT 150 10^3/uL (134-434); RBC 3.52 M/mm3 (3.60-5.2); RDW 21.5 % (11.6-15.6); WHITE BLOOD COUNT 4.8 K/mm3 (4.0-10.0)
[2022-10-05 09:47] LABS: CALCIUM 8.7 mg/dL (8.5-10.1)
[2022-10-05 09:48] LABS: BLOOD UREA NITROGEN 4.8 mg/dL (7-18)
[2022-10-05 09:51] LABS: CREATININE 0.8 mg/dL (0.55-1.3)
[2022-10-05] MEDS: SUCRALFATE 1 GM/10 ML UNIT DOSE CUPS PO SCH ×2 (10:06→12:59)
[2022-10-05] MEDS: PANTOPRAZOLE SODIUM 40 MG VIAL IVPUSH SCH (10:07)
[2022-10-05] MEDS: LISINOPRIL 10 MG TABLET PO SCH (10:07)
[2022-10-05 10:15] VITALS: BP 124/90; PULSE 87; RESP 20; TEMP 98.3
[2022-10-05] MEDS: chlordiazePOXIDE HCL 25 MG CAPSULE PO SCH (10:17)
[2022-10-05] MEDS ORDERED: NITROFURANTOIN MACROCRYSTAL 50 MG CAPSULE (FP) PO SCH (12:00)
== END 2022-10-05 13:54 | disposition home or self-care (01) | DRG 897 ==
LOC: JER 13:02 → JERBED 16:41 → J8W 20:00
PROVIDERS: ADMIT Family Medicine; ATTEND Family Medicine
DX: F10.230 Alcohol dependence with withdrawal, uncomplicated (principal); E87.20 Acidosis, unspecified; R19.7 Diarrhea, unspecified; R79.89 Other specified abnormal findings of blood chemistry; K70.10 Alcoholic hepatitis without ascites; K70.0 Alcoholic fatty liver; R11.2 Nausea with vomiting, unspecified
CPT/HCPCS: 0241U-QW; 36415; 74177-TC; 80048; 80053; 80307; 81003; 82248; 83605; 83690; 83735; 84100; 84703; 85025; 85610; 85730; 86850; 86900; 86901; 87045; 87046; 87086; 87186; 87205; 87209; 87324; 87449; 93005; 93010; 99285-25; Q9967

== ENCOUNTER 2022-10-12 16:30 | Inpatient (IN) | payer BC, OTHER ==
[2022-10-12] MEDS ORDERED: ONDANSETRON 4 MG/2 ML VIAL IVPUSH ONE (17:24)
[2022-10-12] MEDS ORDERED: ACETAMINOPHEN 1000 MG/100 ML BAG IVPB ONE (17:24)
[2022-10-12] MEDS ORDERED: FAMOTIDINE 20 MG/50 ML IVPB 20 MG/50 ML MG IVPB ONE ×2 (17:24→17:34)
[2022-10-12 17:28] LABS: VENOUS BASE EXCESS 6.6 mmol/L (-2-2); VENOUS O2 SATURATION 66.5 % (70-80); VENOUS PCO2 39.6 mmHg (38-52); VENOUS PH 7.501 (7.310-7.410)
[2022-10-12] MEDS ORDERED: SODIUM CHLORIDE 500 ML IV STA (17:33)
[2022-10-12] MEDS ORDERED: morphine CARPU-JECT 2 MG/1 ML DISP.SYRIN IVPUSH ONE (17:33)
[2022-10-12] MEDS ORDERED: ONDANSETRON 4 MG/2 ML VIAL ONE (17:34)
[2022-10-12 17:39] LABS: BASO % 1.3 % (0-2.0); EOS % 0.1 % (0-4.5); HEMATOCRIT 32.4 % (32.4-45.2); HEMOGLOBIN 10.7 GM/dL (10.7-15.3); LYMPH % 13.5 % (8-40); MCH 33.2 pg (25.7-33.7); MCHC 33.1 g/dl (32.0-36.0); MEAN CELL VOLUME 100.5 fl (80-96); MEAN PLT VOLUME 7.9 fl (7.5-11.1); MONO % 17.2 % (3.8-10.2); NEUT % 67.9 % (42.8-82.8); PLATELET COUNT 246 10^3/uL (134-434); RBC 3.22 M/mm3 (3.60-5.2); RDW 19.8 % (11.6-15.6); WHITE BLOOD COUNT 5.8 K/mm3 (4.0-10.0)
[2022-10-12 18:00] LABS: POTASSIUM 3.4 mmol/L (3.5-5.1)
[2022-10-12 18:02] LABS: CALCIUM 8.3 mg/dL (8.5-10.1)
[2022-10-12 18:03] LABS: ALBUMIN 2.2 g/dl (3.4-5.0); BLOOD UREA NITROGEN 3.8 mg/dL (7-18)
[2022-10-12 18:04] LABS: MAGNESIUM 1.3 mg/dL (1.8-2.4)
[2022-10-12 18:06] LABS: CREATININE 0.8 mg/dL (0.55-1.3)
[2022-10-12 18:07] LABS: BILIRUBIN,TOTAL 5.6 mg/dL (0.2-1); TOT PROT 6.4 g/dl (6.4-8.2)
[2022-10-12] MEDS ORDERED: LACTATED RINGERS SOLUTION 1000 ML INFUS.BAG IV ONE ×2 (18:30→20:00)
[2022-10-12] MEDS ORDERED: MAGNESIUM SULF 50% (8.12 MEQ/2 ML-1 GM VIAL) IVPB ONE (18:30)
[2022-10-12] MEDS ORDERED: MAGNESIUM SULFATE IN WATER 2 GM/50 ML IVPB IVPB ONE (19:02)
[2022-10-12] MEDS ORDERED: KCL 10 MEQ IVPB 10 MEQ/100 ML INFUS.BAG IVPB ONE ×2 (19:03→21:40)
[2022-10-12] MEDS ORDERED: FUROSEMIDE 40 MG/4 ML INJECTABLE VIAL IVPUSH ONE (20:17)
[2022-10-12] MEDS ORDERED: SUCRALFATE 1 GM TABLET (FP) PO ONE (20:18)
[2022-10-12] MEDS ORDERED: METOCLOPRAMIDE HCL INJECTION 10 MG/2 ML VIAL IVPUSH ONE (20:18)
[2022-10-12] MEDS ORDERED: SODIUM CHLORIDE 0.9% 500 ML INFUS.BAG IV ONE (20:18)
[2022-10-12] MEDS: KCL 10 MEQ IVPB 10 MEQ/100 ML INFUS.BAG IVPB SCH ×2 (20:26→21:00)
[2022-10-12] MEDS ORDERED: METOCLOPRAMIDE HCL INJECTION 10 MG/2 ML VIAL ONE (20:38)
[2022-10-12] MEDS ORDERED: SUCRALFATE 1 GM TABLET (FP) ONE (20:38)
[2022-10-12] MEDS ORDERED: FUROSEMIDE 40 MG/4 ML INJECTABLE VIAL ONE (20:39)
[2022-10-12 21:48] LABS: PH,URINE 7.5 (5.0-8.0); URINE APPEARANCE CLEAR; URINE BILIRUBIN NEGATIVE (NEGATIVE); URINE COLOR DK YELLOW; URINE GLUCOSE (UA) NEGATIVE (NEGATIVE); URINE KETONE NEGATIVE (NEGATIVE); URINE LEUK ESTERASE NEGATIVE (NEGATIVE); URINE NITRITE NEGATIVE (NEGATIVE); URINE PROTEIN NEGATIVE (NEGATIVE)
[2022-10-12 22:56] LABS: LACTIC ACID 3.8 mmol/L (0.4-2.0)
[2022-10-13] MEDS: KCL 10 MEQ IVPB 10 MEQ/100 ML INFUS.BAG IVPB SCH (00:24)
[2022-10-13] MEDS ORDERED: KCL 10 MEQ IVPB 10 MEQ/100 ML INFUS.BAG IVPB ONE (00:25)
[2022-10-13] MEDS ORDERED: LACTATED RINGERS SOLUTION 1000 ML INFUS.BAG IV ONE (00:36)
[2022-10-13] MEDS ORDERED: morphine CARPU-JECT 2 MG/1 ML DISP.SYRIN IVPUSH ONE (03:44)
[2022-10-13 04:43] LABS: LACTIC ACID 2.4 mmol/L (0.4-2.0)
[2022-10-13] MEDS ORDERED: ONDANSETRON 4 MG/2 ML VIAL IVPUSH ONE (05:32)
[2022-10-13] MEDS ORDERED: ONDANSETRON 4 MG/2 ML VIAL ONE (05:38)
[2022-10-13] MEDS ORDERED: ONDANSETRON 4 MG TABLET PO PRN (09:36)
[2022-10-13] MEDS ORDERED: POTASSIUM CHLORIDE TABS 10 MEQ TABLET.ER (FP) PO ONE (10:00)
[2022-10-13] MEDS ORDERED: FAMOTIDINE 20 MG TABLET ONE (11:46)
[2022-10-13] MEDS ORDERED: POTASSIUM CHLORIDE TABS 10 MEQ TABLET.ER (FP) ONE (11:46)
[2022-10-13] MEDS ORDERED: METOCLOPRAMIDE HCL 10 MG TABLET (FP) PO ONE (11:46)
[2022-10-13] MEDS: LACTATED RINGERS SOLUTION 1,000 ML/1,000 ML INFUS.BAG IV SCH ×2 (12:02→15:25)
[2022-10-13] MEDS: METOCLOPRAMIDE HCL 10 MG TABLET (FP) PO SCH ×2 (12:03→17:36)
[2022-10-13] MEDS: FAMOTIDINE 20 MG TABLET PO SCH (12:03)
[2022-10-13 13:00] VITALS: BMI 37.3
[2022-10-13] MEDS ORDERED: BISACODYL 5 MG TABLET.DR (FP) PO ONE ×2 (14:30→17:45)
[2022-10-13 16:29] LABS: POTASSIUM 3.3 mmol/L (3.5-5.1)
[2022-10-13 16:30] LABS: CALCIUM 8.5 mg/dL (8.5-10.1)
[2022-10-13 16:31] LABS: BLOOD UREA NITROGEN 4.4 mg/dL (7-18)
[2022-10-13 16:34] LABS: CREATININE 0.9 mg/dL (0.55-1.3)
[2022-10-13] MEDS ORDERED: PEG 3350/NA SULF BICARB CL/KCL 4000 ML SOLN.RECON PO ONE (17:00)
[2022-10-13 22:05] LABS: PHENCYCLIDINE,URINE NEGATIVE (NEGATIVE); URINE BARBITURATES NEGATIVE (NEGATIVE)
[2022-10-13 22:06] LABS: COCAINE, UR NEGATIVE (NEGATIVE); METHADONE, UR NEGATIVE (NEGATIVE)
[2022-10-13 22:11] LABS: OPIATES, URI POSITIVE (NEGATIVE); URINE AMPHETAMINES NEGATIVE (NEGATIVE); URINE BENZODIAZEPINES POSITIVE (NEGATIVE)
[2022-10-14] MEDS: METOCLOPRAMIDE HCL 10 MG TABLET (FP) PO SCH ×3 (06:06→16:44)
[2022-10-14 08:25] LABS: BASO % 2.2 % (0-2.0); HEMATOCRIT 29.8 % (32.4-45.2); HEMOGLOBIN 10.3 GM/dL (10.7-15.3); LYMPH % 21.2 % (8-40); MCH 34.8 pg (25.7-33.7); MCHC 34.4 g/dl (32.0-36.0); MEAN CELL VOLUME 101.1 fl (80-96); MEAN PLT VOLUME 8.6 fl (7.5-11.1); MONO % 13.1 % (3.8-10.2); NEUT % 62.5 % (42.8-82.8); PLATELET COUNT 210 10^3/uL (134-434); RBC 2.95 M/mm3 (3.60-5.2); RDW 19.2 % (11.6-15.6); WHITE BLOOD COUNT 4.4 K/mm3 (4.0-10.0)
[2022-10-14 08:43] LABS: POTASSIUM 3.1 mmol/L (3.5-5.1)
[2022-10-14 08:53] LABS: BILIRUBIN,TOTAL 4.7 mg/dL (0.2-1)
[2022-10-14 08:54] LABS: ALBUMIN 2.1 g/dl (3.4-5.0); BLOOD UREA NITROGEN 3.4 mg/dL (7-18); TOT PROT 5.9 g/dl (6.4-8.2)
[2022-10-14 08:57] LABS: CALCIUM 8.5 mg/dL (8.5-10.1); CREATININE 0.7 mg/dL (0.55-1.3)
[2022-10-14] MEDS: FAMOTIDINE 20 MG TABLET PO SCH (10:23)
[2022-10-14] MEDS: SPIRONOLACTONE 25 MG TABLET PO SCH (10:23)
[2022-10-14] MEDS ORDERED: POTASSIUM CHLORIDE ORAL LIQUID 20 MEQ/15 ML PO ONE (10:48)
[2022-10-14] MEDS ORDERED: ACETAMINOPHEN 325 MG TABLET (FP) PO PRN (17:49)
[2022-10-14] MEDS: PANTOPRAZOLE SODIUM 40 MG VIAL IVPUSH SCH (21:15)
[2022-10-15] MEDS ORDERED: CYANOCOBALAMIN (VITAMIN B-12) 1000 MCG/1 ML VIAL IM ONE ×2 (08:35→11:30)
[2022-10-15 09:53] LABS: CHLORIDE 99 mmol/L (98-107); POTASSIUM 3.4 mmol/L (3.5-5.1); SODIUM 140 mmol/L (136-145)
[2022-10-15 09:59] LABS: BASO % 2.2 % (0-2.0); EOS % 1.1 % (0-4.5); HEMATOCRIT 31.8 % (32.4-45.2); HEMOGLOBIN 10.8 GM/dL (10.7-15.3); LYMPH % 20.8 % (8-40); MCH 35.1 pg (25.7-33.7); MCHC 34.1 g/dl (32.0-36.0); MEAN CELL VOLUME 102.9 fl (80-96); MEAN PLT VOLUME 9.1 fl (7.5-11.1); NEUT % 62.9 % (42.8-82.8); PLATELET COUNT 221 10^3/uL (134-434); RBC 3.09 M/mm3 (3.60-5.2); WHITE BLOOD COUNT 4.4 K/mm3 (4.0-10.0)
[2022-10-15 10:04] LABS: CALCIUM 8.5 mg/dL (8.5-10.1)
[2022-10-15 10:05] LABS: ANION GAP 9 MMOL/L (8-16); CO2 32 mmol/L (21-32)
[2022-10-15 10:07] LABS: CREATININE 0.7 mg/dL (0.55-1.3)
[2022-10-15 10:08] LABS: GLUCOSE,RANDOM 73 mg/dL (74-106)
[2022-10-15 10:10] LABS: BLOOD UREA NITROGEN 2.7 mg/dL (7-18)
[2022-10-15] MEDS: LACTATED RINGERS SOLUTION 1,000 ML/1,000 ML INFUS.BAG IV SCH (11:09)
[2022-10-15] MEDS: SUCRALFATE 1 GM/10 ML UNIT DOSE CUPS PO SCH ×3 (11:10→21:19)
[2022-10-15] MEDS: PANTOPRAZOLE SODIUM 40 MG VIAL IVPUSH SCH ×2 (11:10→21:19)
[2022-10-15] MEDS: SPIRONOLACTONE 25 MG TABLET PO SCH (11:10)
[2022-10-15] MEDS ORDERED: FUROSEMIDE 40 MG TABLET (FP) PO ONE ×3 (15:04→17:30)
[2022-10-15] MEDS: LIPASE/PROTEASE/AMYLASE 36,000 UNIT CAPSULE PO SCH (17:27)
[2022-10-15] MEDS ORDERED: methylPREDNISolone NA SUCC 125 MG/2 ML VIAL IVPUSH ONE (20:00)
[2022-10-15 22:14] VITALS: RESP 18
[2022-10-16] MEDS: SUCRALFATE 1 GM/10 ML UNIT DOSE CUPS PO SCH ×2 (06:13→12:02)
[2022-10-16 07:00] VITALS: BP 112/79; PULSE 95; TEMP 98
[2022-10-16 09:24] LABS: BASO % 0.3 % (0-2.0); HEMATOCRIT 34.3 % (32.4-45.2); HEMOGLOBIN 11.5 GM/dL (10.7-15.3); LYMPH % 12.4 % (8-40); MCH 34.4 pg (25.7-33.7); MCHC 33.5 g/dl (32.0-36.0); MEAN CELL VOLUME 102.9 fl (80-96); MONO % 7.5 % (3.8-10.2); NEUT % 79.8 % (42.8-82.8); PLATELET COUNT 202 10^3/uL (134-434); RBC 3.34 M/mm3 (3.60-5.2); WHITE BLOOD COUNT 6.3 K/mm3 (4.0-10.0)
[2022-10-16 09:42] LABS: CHLORIDE 99 mmol/L (98-107); POTASSIUM 3.4 mmol/L (3.5-5.1); SODIUM 136 mmol/L (136-145)
[2022-10-16 09:48] LABS: CALCIUM 8.4 mg/dL (8.5-10.1)
[2022-10-16 09:49] LABS: ANION GAP 9 MMOL/L (8-16); CO2 27 mmol/L (21-32); GLUCOSE,RANDOM 141 mg/dL (74-106)
[2022-10-16 09:52] LABS: CREATININE 0.9 mg/dL (0.55-1.3)
[2022-10-16] MEDS: SPIRONOLACTONE 25 MG TABLET PO SCH (09:59)
[2022-10-16] MEDS ORDERED: FUROSEMIDE 40 MG TABLET (FP) PO SCH (10:00)
[2022-10-16] MEDS: PANTOPRAZOLE SODIUM 40 MG VIAL IVPUSH SCH (10:05)
[2022-10-16] MEDS: LIPASE/PROTEASE/AMYLASE 36,000 UNIT CAPSULE PO SCH ×2 (10:06→12:02)
[2022-10-16] MEDS ORDERED: POTASSIUM CHLORIDE ORAL LIQUID 20 MEQ/15 ML PO ONE (10:13)
[2022-10-16 10:41] LABS: BLOOD UREA NITROGEN 2.4 mg/dL (7-18)
== END 2022-10-16 13:50 | disposition home or self-care (01) | DRG 392 ==
LOC: JER 16:30 → JERBED 18:51 → OBSVTOIN 10-13 09:33 → J8W 10-13 12:16
PROVIDERS: ADMIT Family Medicine; ATTEND Family Medicine
PROC: 0DBL8ZX Excision of Transverse Colon, Via Natural or Artificial Opening Endoscopic, Diagnostic (ICD-10-PCS; 2022-10-14)
PROC: 0DBB8ZX Excision of Ileum, Via Natural or Artificial Opening Endoscopic, Diagnostic (ICD-10-PCS; 2022-10-14)
PROC: 0DBK8ZX Excision of Ascending Colon, Via Natural or Artificial Opening Endoscopic, Diagnostic (ICD-10-PCS; 2022-10-14)
PROC: 0DB68ZX Excision of Stomach, Via Natural or Artificial Opening Endoscopic, Diagnostic (ICD-10-PCS; principal; 2022-10-14 14:30)
DX: R19.7 Diarrhea, unspecified (principal); K76.0 Fatty (change of) liver, not elsewhere classified; K70.10 Alcoholic hepatitis without ascites; R11.10 Vomiting, unspecified; K29.50 Unspecified chronic gastritis without bleeding; E87.6 Hypokalemia; R10.9 Unspecified abdominal pain; E66.9 Obesity, unspecified; Z68.37 Body mass index [BMI] 37.0-37.9, adult; K63.5 Polyp of colon; R74.01 Elevation of levels of liver transaminase levels
CPT/HCPCS: 0241U-QW; 36415; 71045-TC-FY; 74174-TC; 76705-TC; 80048; 80053; 80307; 81003; 82803; 83605; 83690; 83735; 84484; 84703; 85025; 86850; 86900; 86901; 87040; 87045; 87046; 87086; 87186; 87205; 87324; 87449; 88305-TC; 93005; 93010; 93970-TC; 99285-25; G0378; Q9967

== ENCOUNTER 2022-10-27 16:25 | Emergency (ER) | payer BC, OTHER ==
[2022-10-27 16:33] VITALS: BMI 31.4
[2022-10-27] MEDS ORDERED: ONDANSETRON 4 MG/2 ML VIAL IVPUSH ONE (17:06)
[2022-10-27] MEDS ORDERED: MAG HYDROX/AL HYDROX/SIMETH -MYLANTA- ORAL SUSPENSION PO ONE (17:06)
[2022-10-27] MEDS ORDERED: FAMOTIDINE 20 MG/50 ML IVPB 20 MG/50 ML MG IVPB ONE (17:06)
[2022-10-27] MEDS ORDERED: SODIUM CHLORIDE 0.9% 1000 ML INFUS.BAG IV ONE (17:06)
[2022-10-27] MEDS ORDERED: FAMOTIDINE 10 MG/ML VIAL IVPB ONE (17:40)
[2022-10-27] MEDS ORDERED: ONDANSETRON 4 MG/2 ML VIAL ONE (17:40)
[2022-10-27 18:40] LABS: BASO % 0.8 % (0-2.0); HEMATOCRIT 38.9 % (32.4-45.2); HEMOGLOBIN 12.9 GM/dL (10.7-15.3); LYMPH % 6.8 % (8-40); MCH 33.2 pg (25.7-33.7); MCHC 33.1 g/dl (32.0-36.0); MEAN CELL VOLUME 100.4 fl (80-96); MEAN PLT VOLUME 8.4 fl (7.5-11.1); NEUT % 86.4 % (42.8-82.8); PLATELET COUNT 311 10^3/uL (134-434); RBC 3.87 M/mm3 (3.60-5.2); RDW 14.2 % (11.6-15.6); WHITE BLOOD COUNT 8.6 K/mm3 (4.0-10.0)
[2022-10-27 18:50] LABS: CHLORIDE 90 mmol/L (98-107); SODIUM 134 mmol/L (136-145)
[2022-10-27 18:51] LABS: CALCIUM 9.5 mg/dL (8.5-10.1); GLUCOSE,RANDOM 134 mg/dL (74-106)
[2022-10-27 18:52] LABS: BLOOD UREA NITROGEN 6.7 mg/dL (7-18); CO2 31 mmol/L (21-32); MAGNESIUM 1.5 mg/dL (1.8-2.4)
[2022-10-27 18:54] LABS: LIPASE 45 U/L (73-393)
[2022-10-27 18:56] LABS: BILIRUBIN,TOTAL 4.4 mg/dL (0.2-1); SGOT/AST 147 U/L (15-37); SGPT/ALT 36 U/L (13-61); TOT PROT 7.4 g/dl (6.4-8.2)
[2022-10-27 18:57] LABS: ALK PHOS 153 U/L (45-117)
[2022-10-27] MEDS ORDERED: HYDROmorphone HCl 2 MG/ML VIAL IVPUSH ONE (19:02)
[2022-10-27 19:07] LABS: ALBUMIN 2.6 g/dl (3.4-5.0); ANION GAP 13 MMOL/L (8-16); POTASSIUM 2.8 mmol/L (3.5-5.1)
[2022-10-27 19:49] LABS: LACTIC ACID 3.3 mmol/L (0.4-2.0)
[2022-10-27] MEDS ORDERED: MAGNESIUM 1GM/D5W - 1 GM/100 ML IVPB IVPB ONE (20:09)
[2022-10-27] MEDS ORDERED: HYDROmorphone HCl 2 MG/ML VIAL ONE (20:09)
[2022-10-27] MEDS ORDERED: MAGNESIUM SULFATE IN WATER 2 GM/50 ML IVPB IVPB ONE (20:10)
[2022-10-27] MEDS ORDERED: TRIMETHOBENZAMIDE HCL 200MG/2ML INJ IM ONE ×2 (20:29→20:41)
[2022-10-27] MEDS ORDERED: POTASSIUM CHLORIDE ORAL LIQUID 20 MEQ/15 ML PO ONE (21:05)
[2022-10-27] MEDS ORDERED: POTASSIUM CHLORIDE ORAL LIQUID 20 MEQ/15 ML ONE (21:14)
[2022-10-27 23:09] LABS: CHLORIDE 94 mmol/L (98-107); SODIUM 134 mmol/L (136-145)
[2022-10-27 23:10] LABS: CALCIUM 8.6 mg/dL (8.5-10.1)
[2022-10-27 23:11] LABS: BLOOD UREA NITROGEN 6.8 mg/dL (7-18); CO2 30 mmol/L (21-32); GLUCOSE,RANDOM 111 mg/dL (74-106); MAGNESIUM 2.2 mg/dL (1.8-2.4)
[2022-10-27 23:15] LABS: CREATININE 0.8 mg/dL (0.55-1.3)
[2022-10-27 23:26] LABS: ANION GAP 10 MMOL/L (8-16); POTASSIUM 2.8 mmol/L (3.5-5.1)
[2022-10-27 23:42] LABS: URINE APPEARANCE Clear; URINE BILIRUBIN Small (NEGATIVE); URINE COLOR DK YELLOW; URINE GLUCOSE (UA) Negative (NEGATIVE); URINE KETONE Negative (NEGATIVE); URINE LEUK ESTERASE Negative (NEGATIVE); URINE NITRITE Negative (NEGATIVE); URINE PROTEIN Negative (NEGATIVE)
[2022-10-28] MEDS ORDERED: KCL 10 MEQ IVPB 10 MEQ/100 ML INFUS.BAG IVPB SCH (00:30)
[2022-10-28] MEDS ORDERED: KCL 10 MEQ IVPB 10 MEQ/100 ML INFUS.BAG IVPB ONE (01:30)
[2022-10-28] MEDS ORDERED: SODIUM CHLORIDE 0.9% 500 ML INFUS.BAG IV ONE (01:35)
[2022-10-28] MEDS ORDERED: POTASSIUM CHLORIDE ORAL LIQUID 20 MEQ/15 ML PO ONE (03:58)
[2022-10-28] MEDS ORDERED: POTASSIUM CHLORIDE ORAL LIQUID 20 MEQ/15 ML ONE (04:01)
[2022-10-28 05:27] VITALS: BP 108/71; PULSE 87; RESP 14; TEMP 97.9
[2022-10-28] MEDS ORDERED: ACETAMINOPHEN 1000 MG/100 ML BAG IVPB ONE (05:39)
[2022-10-28] MEDS ORDERED: ACETAMINOPHEN INJECTION 100 ML IVPB ONE (05:47)
[2022-10-28 05:55] LABS: POTASSIUM 3.8 mmol/L (3.5-5.1)
[2022-10-28 05:56] LABS: CALCIUM 8.3 mg/dL (8.5-10.1)
[2022-10-28 05:57] LABS: BLOOD UREA NITROGEN 6.3 mg/dL (7-18)
[2022-10-28 06:02] LABS: CREATININE 0.8 mg/dL (0.55-1.3)
== END 2022-10-28 06:33 | disposition home or self-care (01) ==
LOC: JER 16:25
PROC: 3E033GC Introduction of Other Therapeutic Substance into Peripheral Vein, Percutaneous Approach (ICD-10-PCS; principal; 2022-10-27)
PROC: 3E033GC Introduction of Other Therapeutic Substance into Peripheral Vein, Percutaneous Approach (ICD-10-PCS; 2022-10-27)
PROC: 3E033GC Introduction of Other Therapeutic Substance into Peripheral Vein, Percutaneous Approach (ICD-10-PCS; 2022-10-27)
PROC: 3E033GC Introduction of Other Therapeutic Substance into Peripheral Vein, Percutaneous Approach (ICD-10-PCS; 2022-10-27)
PROC: 3E023GC Introduction of Other Therapeutic Substance into Muscle, Percutaneous Approach (ICD-10-PCS; 2022-10-27)
DX: R10.11 Right upper quadrant pain (principal); E87.6 Hypokalemia; E83.42 Hypomagnesemia; R11.10 Vomiting, unspecified; R19.7 Diarrhea, unspecified; Z20.822 Contact with and (suspected) exposure to COVID-19
CPT/HCPCS: 0241U-QW; 36415; 71045-TC-FY; 74174-TC; 80048; 80053; 81003; 82550; 83605; 83690; 83735; 84484; 84703; 85025; 87086; 93005; 93010; 99285-25; Q9967

== ENCOUNTER 2022-10-28 21:27 | Observation (INO) | payer BC, OTHER ==
[2022-10-29] MEDS ORDERED: HYDROmorphone HCl 2 MG/ML VIAL IVPUSH ONE ×2 (00:12→04:04)
[2022-10-29] MEDS ORDERED: TRIMETHOBENZAMIDE HCL 200MG/2ML INJ IM ONE ×2 (00:12→00:37)
[2022-10-29] MEDS ORDERED: HYDROmorphone HCl 2 MG/ML VIAL ONE (00:37)
[2022-10-29 01:54] LABS: BASO % 1.5 % (0-2.0); EOS % 0.1 % (0-4.5); HEMOGLOBIN 12.1 GM/dL (10.7-15.3); LYMPH % 11.6 % (8-40); MCH 34.6 pg (25.7-33.7); MCHC 34.4 g/dl (32.0-36.0); MEAN CELL VOLUME 100.5 fl (80-96); MEAN PLT VOLUME 8.9 fl (7.5-11.1); NEUT % 79.8 % (42.8-82.8); PLATELET COUNT 269 10^3/uL (134-434); RBC 3.48 M/mm3 (3.60-5.2); RDW 14.1 % (11.6-15.6); WHITE BLOOD COUNT 6.9 K/mm3 (4.0-10.0)
[2022-10-29 02:05] LABS: CHLORIDE 93 mmol/L (98-107); SODIUM 133 mmol/L (136-145)
[2022-10-29] MEDS ORDERED: SUMATRIPTAN SUCCINATE 6 MG/0.5 ML VIAL SQ ONE (02:07)
[2022-10-29 02:08] LABS: ALBUMIN 2.7 g/dl (3.4-5.0); BLOOD UREA NITROGEN 5.8 mg/dL (7-18); CALCIUM 9.5 mg/dL (8.5-10.1); CO2 29 mmol/L (21-32); INR 1.09 (0.83-1.09); LIPASE 43 U/L (73-393); PROTHROMBIN TIME (PATIENT) 12.6 SEC (9.7-13.0)
[2022-10-29 02:09] LABS: GLUCOSE,RANDOM 104 mg/dL (74-106); MAGNESIUM 1.6 mg/dL (1.8-2.4)
[2022-10-29 02:10] LABS: ACTIVATED PTT 28.4 SECONDS (25.2-36.5)
[2022-10-29 02:11] LABS: CREATININE 0.8 mg/dL (0.55-1.3); SGOT/AST 150 U/L (15-37); SGPT/ALT 38 U/L (13-61)
[2022-10-29 02:13] LABS: BILIRUBIN,TOTAL 3.6 mg/dL (0.2-1); TOT PROT 7.5 g/dl (6.4-8.2)
[2022-10-29 02:15] LABS: ALK PHOS 158 U/L (45-117)
[2022-10-29] MEDS ORDERED: DICYCLOMINE HCL 10 MG CAPSULE PO ONE (02:37)
[2022-10-29 02:39] LABS: ANION GAP 11 MMOL/L (8-16); POTASSIUM 2.9 mmol/L (3.5-5.1)
[2022-10-29] MEDS ORDERED: SUMATRIPTAN SUCCINATE 6 MG/0.5 ML VIAL ONE (02:52)
[2022-10-29] MEDS ORDERED: MAGNESIUM SULF 50% (8.12 MEQ/2 ML-1 GM VIAL) ONE (02:52)
[2022-10-29] MEDS ORDERED: DICYCLOMINE HCL 10 MG CAPSULE ONE (02:52)
[2022-10-29] MEDS ORDERED: MAGNESIUM SULFATE IN WATER 2 GM/50 ML IVPB IVPB ONE (02:54)
[2022-10-29] MEDS ORDERED: POTASSIUM CHLORIDE ORAL LIQUID 20 MEQ/15 ML PO ONE ×2 (02:55→05:33)
[2022-10-29] MEDS ORDERED: SODIUM CHLORIDE 0.9%/KCL 20 MEQ/1,000 ML INFUS.BAG IV SCH ×2 (03:00→05:45)
[2022-10-29] MEDS ORDERED: POTASSIUM CHLORIDE ORAL LIQUID 20 MEQ/15 ML ONE (03:54)
[2022-10-29] MEDS ORDERED: LORazepam 1 MG TABLET PO PRN (06:10)
[2022-10-29] MEDS ORDERED: DICYCLOMINE HCL 10 MG CAPSULE PO PRN (07:17)
[2022-10-29 08:20] VITALS: BMI 32.4
[2022-10-29] MEDS: FOLIC ACID 1 MG TABLET (FP) PO SCH (10:42)
[2022-10-29] MEDS: POTASSIUM CHLORIDE TABS 20 MEQ TABLET.ER (FP) PO SCH (10:42)
[2022-10-29] MEDS: ENOXAPARIN NA (PORCINE) 40 MG/0.4 ML DISP.SYRIN SQ SCH (10:42)
[2022-10-29] MEDS: THIAMINE HCL 200 MG/2 ML VIAL IVPB SCH (10:43)
[2022-10-29] MEDS: TRIMETHOBENZAMIDE HCL 200MG/2ML INJ IM PRN ×2 (10:52→20:16)
[2022-10-29 11:58] LABS: POTASSIUM 4.3 mmol/L (3.5-5.1)
[2022-10-29 12:01] LABS: BLOOD UREA NITROGEN 5.5 mg/dL (7-18); CALCIUM 8.5 mg/dL (8.5-10.1)
[2022-10-29 12:04] LABS: CREATININE 0.6 mg/dL (0.55-1.3); MAGNESIUM 2.2 mg/dL (1.8-2.4); PHOSPHOROUS 2.6 mg/dL (2.5-4.9)
[2022-10-29 12:05] LABS: TOT PROT 5.7 g/dl (6.4-8.2)
[2022-10-29 12:06] LABS: BILIRUBIN,TOTAL 2.5 mg/dL (0.2-1)
[2022-10-29 12:49] LABS: BASO % 1.4 % (0-2.0); EOS % 0.9 % (0-4.5); HEMATOCRIT 31.7 % (32.4-45.2); HEMOGLOBIN 10.6 GM/dL (10.7-15.3); LYMPH % 24.3 % (8-40); MCH 33.8 pg (25.7-33.7); MCHC 33.3 g/dl (32.0-36.0); MEAN CELL VOLUME 101.6 fl (80-96); MEAN PLT VOLUME 8.6 fl (7.5-11.1); MONO % 13.2 % (3.8-10.2); NEUT % 60.2 % (42.8-82.8); PLATELET COUNT 230 10^3/uL (134-434); RBC 3.12 M/mm3 (3.60-5.2); RDW 13.9 % (11.6-15.6); WHITE BLOOD COUNT 7.7 K/mm3 (4.0-10.0)
[2022-10-29 14:41] VITALS: RESP 18
[2022-10-29] MEDS: SODIUM CHLORIDE 1,000 ML IV SCH (17:01)
[2022-10-29] MEDS ORDERED: ACETAMINOPHEN 1000 MG/100 ML BAG IVPB PRN (22:36)
[2022-10-29] MEDS ORDERED: KETOROLAC TROMETHAMINE 15 MG/ML VIAL IVPUSH PRN (22:36)
[2022-10-30] MEDS: SODIUM CHLORIDE 1,000 ML IV SCH ×2 (06:24→12:50)
[2022-10-30 08:09] LABS: BASO % 4.9 % (0-2.0); EOS % 2.3 % (0-4.5); HEMATOCRIT 32.8 % (32.4-45.2); HEMOGLOBIN 10.9 GM/dL (10.7-15.3); LYMPH % 28.2 % (8-40); MCH 34.2 pg (25.7-33.7); MCHC 33.1 g/dl (32.0-36.0); MEAN CELL VOLUME 103.2 fl (80-96); MEAN PLT VOLUME 8.2 fl (7.5-11.1); MONO % 11.5 % (3.8-10.2); NEUT % 53.1 % (42.8-82.8); PLATELET COUNT 223 10^3/uL (134-434); RBC 3.18 M/mm3 (3.60-5.2); RDW 14.1 % (11.6-15.6); WHITE BLOOD COUNT 3.9 K/mm3 (4.0-10.0)
[2022-10-30 08:26] LABS: POTASSIUM 4.5 mmol/L (3.5-5.1)
[2022-10-30 08:57] LABS: CALCIUM 8.9 mg/dL (8.5-10.1)
[2022-10-30 09:01] LABS: CREATININE 0.6 mg/dL (0.55-1.3)
[2022-10-30 09:09] LABS: BLOOD UREA NITROGEN 4.9 mg/dL (7-18)
[2022-10-30] MEDS: THIAMINE HCL 200 MG/2 ML VIAL IVPB SCH (12:05)
[2022-10-30] MEDS: FOLIC ACID 1 MG TABLET (FP) PO SCH (12:05)
[2022-10-30] MEDS: ENOXAPARIN NA (PORCINE) 40 MG/0.4 ML DISP.SYRIN SQ SCH (12:05)
[2022-10-30] MEDS: POTASSIUM CHLORIDE TABS 20 MEQ TABLET.ER (FP) PO SCH (12:05)
[2022-10-31] MEDS ORDERED: MAG HYDROX/AL HYDROX/SIMETH 30 ML UNIT-DOSE CUP PO ONE ×2 (06:02→13:25)
[2022-10-31] MEDS ORDERED: PANTOPRAZOLE 40 MG TABLET PO ONE (07:01)
[2022-10-31] MEDS: FOLIC ACID 1 MG TABLET (FP) PO SCH (09:45)
[2022-10-31] MEDS: POTASSIUM CHLORIDE TABS 20 MEQ TABLET.ER (FP) PO SCH (09:45)
[2022-10-31] MEDS: THIAMINE HCL 200 MG/2 ML VIAL IVPB SCH (09:45)
[2022-10-31] MEDS: ENOXAPARIN NA (PORCINE) 40 MG/0.4 ML DISP.SYRIN SQ SCH (09:45)
[2022-10-31] MEDS: HYOSCYAMINE SULFATE 0.125 MG *ODT PO SCH ×4 (11:24→21:03)
[2022-10-31] MEDS: SODIUM CHLORIDE 1,000 ML IV SCH (13:36)
[2022-10-31] MEDS: SUCRALFATE 1 GM TABLET (FP) PO SCH ×2 (17:09→21:03)
[2022-11-01] MEDS: SODIUM CHLORIDE 1,000 ML IV SCH (03:37)
[2022-11-01] MEDS: SUCRALFATE 1 GM TABLET (FP) PO SCH (09:31)
[2022-11-01] MEDS: FOLIC ACID 1 MG TABLET (FP) PO SCH (09:31)
[2022-11-01] MEDS: POTASSIUM CHLORIDE TABS 20 MEQ TABLET.ER (FP) PO SCH (09:31)
[2022-11-01] MEDS: THIAMINE HCL 200 MG/2 ML VIAL IVPB SCH (09:32)
[2022-11-01] MEDS: HYOSCYAMINE SULFATE 0.125 MG *ODT PO SCH (09:32)
[2022-11-01] MEDS: ENOXAPARIN NA (PORCINE) 40 MG/0.4 ML DISP.SYRIN SQ SCH (09:32)
[2022-11-01] MEDS ORDERED: MULTIVIT-MINERALS ORAL LIQUID PO SCH (10:00)
[2022-11-01 10:15] LABS: CALCIUM 8.7 mg/dL (8.5-10.1)
[2022-11-01 10:16] LABS: BLOOD UREA NITROGEN 4.9 mg/dL (7-18)
[2022-11-01 10:18] LABS: BILIRUBIN,DIRECT 1.8 mg/dL (0.0-0.2); CREATININE 0.6 mg/dL (0.55-1.3)
[2022-11-01 10:20] LABS: BILIRUBIN,TOTAL 2.3 mg/dL (0.2-1); TOT PROT 5.6 g/dl (6.4-8.2)
[2022-11-01 10:47] VITALS: BP 123/88; PULSE 95; TEMP 98.1
== END 2022-11-01 11:05 | disposition home or self-care (01) ==
LOC: JER 21:27 → JERBED 10-29 03:24 → J5S 10-29 08:19
PROVIDERS: ADMIT Internal Medicine; ATTEND Internal Medicine
PROC: 3E033NZ Introduction of Analgesics, Hypnotics, Sedatives into Peripheral Vein, Percutaneous Approach (ICD-10-PCS; principal; 2022-10-29)
PROC: 3E033GC Introduction of Other Therapeutic Substance into Peripheral Vein, Percutaneous Approach (ICD-10-PCS; 2022-10-29)
PROC: 3E033NZ Introduction of Analgesics, Hypnotics, Sedatives into Peripheral Vein, Percutaneous Approach (ICD-10-PCS; 2022-10-29)
PROC: 3E0333Z Introduction of Anti-inflammatory into Peripheral Vein, Percutaneous Approach (ICD-10-PCS; 2022-10-29)
PROC: 3E023GC Introduction of Other Therapeutic Substance into Muscle, Percutaneous Approach (ICD-10-PCS; 2022-10-29)
DX: R10.9 Unspecified abdominal pain (principal); R11.2 Nausea with vomiting, unspecified; E87.6 Hypokalemia; E83.42 Hypomagnesemia; Z88.8 Allergy status to other drugs, medicaments and biological substances; Z91.013 Allergy to seafood
CPT/HCPCS: 0241U-QW; 36415; 80048; 80053; 80076; 83605; 83690; 83735; 84100; 85025; 85610; 85730; 86850; 86900; 86901; 93005; 93010; 99285-25; G0378

== ENCOUNTER 2022-11-12 12:16 | Inpatient (IN) | payer BC, OTHER ==
[2022-11-12 12:32] VITALS: BMI 31.0
[2022-11-12] MEDS ORDERED: ONDANSETRON 4 MG/2 ML VIAL IVPUSH ONE (13:23)
[2022-11-12] MEDS ORDERED: SODIUM CHLORIDE 0.9% 500 ML INFUS.BAG IV ONE (13:23)
[2022-11-12] MEDS ORDERED: METOCLOPRAMIDE HCL INJECTION 10 MG/2 ML VIAL IVPUSH ONE (13:23)
[2022-11-12] MEDS ORDERED: morphine CARPU-JECT 4 MG/1 ML DISP.SYRIN IVPUSH ONE (13:24)
[2022-11-12] MEDS ORDERED: METOCLOPRAMIDE HCL INJECTION 10 MG/2 ML VIAL ONE (13:33)
[2022-11-12] MEDS ORDERED: morphine SULFATE 4 MG/ML VIAL ONE (13:33)
[2022-11-12] MEDS ORDERED: ONDANSETRON 4 MG/2 ML VIAL ONE (13:34)
[2022-11-12 14:49] LABS: BASO % 0.4 % (0-2.0); HEMATOCRIT 36.8 % (32.4-45.2); HEMOGLOBIN 12.4 GM/dL (10.7-15.3); LYMPH % 7.6 % (8-40); MCH 32.2 pg (25.7-33.7); MCHC 33.8 g/dl (32.0-36.0); MEAN CELL VOLUME 95.5 fl (80-96); MEAN PLT VOLUME 9.2 fl (7.5-11.1); MONO % 7.6 % (3.8-10.2); NEUT % 84.4 % (42.8-82.8); PLATELET COUNT 224 10^3/uL (134-434); RBC 3.85 M/mm3 (3.60-5.2); RDW 14.4 % (11.6-15.6)
[2022-11-12 15:19] LABS: POTASSIUM 3.9 mmol/L (3.5-5.1)
[2022-11-12 15:21] LABS: CALCIUM 8.3 mg/dL (8.5-10.1)
[2022-11-12 15:22] LABS: BLOOD UREA NITROGEN 6.6 mg/dL (7-18)
[2022-11-12 15:23] LABS: LACTIC ACID 7.2 mmol/L (0.4-2.0)
[2022-11-12 15:25] LABS: CREATININE 1.3 mg/dL (0.55-1.3)
[2022-11-12 15:26] LABS: BILIRUBIN,TOTAL 3.7 mg/dL (0.2-1); TOT PROT 6.8 g/dl (6.4-8.2)
[2022-11-12 15:30] LABS: N-TERMINAL BNP 259.4 pg/ml (5-125)
[2022-11-12 15:32] LABS: ALBUMIN 2.5 g/dl (3.4-5.0)
[2022-11-12] MEDS ORDERED: HYDROmorphone HCl 2 MG/ML VIAL IVPB ONE (18:31)
[2022-11-12] MEDS ORDERED: HYDROmorphone HCl 2 MG/ML VIAL ONE (18:48)
[2022-11-12] MEDS ORDERED: LACTATED RINGERS SOLUTION 1000 ML INFUS.BAG IV ONE (19:40)
[2022-11-12 20:42] LABS: EPI CELLS >36 /uL (0-25.1); HYALINE CASTS 8 /uL (0-3.1); PH,URINE 6.5 (5.0-8.0); URINE APPEARANCE Clear; URINE BACTERIA 132 /uL (0-1359); URINE BILIRUBIN Moderate (NEGATIVE); URINE COLOR DK YELLOW; URINE GLUCOSE (UA) Negative (NEGATIVE); URINE KETONE Trace (NEGATIVE); URINE LEUK ESTERASE TRACE (NEGATIVE); URINE NITRITE Negative (NEGATIVE); URINE PROTEIN 30 (NEGATIVE); URINE UROBILINOGEN 4.0 E.U/dl mg/dL (0.2-1.0); URINE WBC 40 /uL (0-25.8)
[2022-11-12] MEDS ORDERED: TRIMETHOBENZAMIDE HCL 200MG/2ML INJ IM ONE (23:44)
[2022-11-12] MEDS: TRIMETHOBENZAMIDE HCL 200MG/2ML INJ IM PRN (23:48)
[2022-11-13 00:52] LABS: LACTIC ACID 2.5 mmol/L (0.4-2.0)
[2022-11-13] MEDS: SODIUM CHLORIDE 1,000 ML IV SCH ×3 (04:29→18:39)
[2022-11-13] MEDS ORDERED: ACETAMINOPHEN 500 MG TABLET (FP) PO ONE (09:00)
[2022-11-13] MEDS: ENOXAPARIN NA (PORCINE) 40 MG/0.4 ML DISP.SYRIN SQ SCH (09:45)
[2022-11-13 10:06] LABS: HEMATOCRIT 30.9 % (32.4-45.2); HEMOGLOBIN 10.2 GM/dL (10.7-15.3); MCH 31.9 pg (25.7-33.7); MCHC 32.9 g/dl (32.0-36.0); MEAN CELL VOLUME 96.7 fl (80-96); PLATELET COUNT 164 10^3/uL (134-434); RDW 14.1 % (11.6-15.6); WHITE BLOOD COUNT 5.9 K/mm3 (4.0-10.0)
[2022-11-13 10:27] LABS: MAGNESIUM 1.3 mg/dL (1.8-2.4)
[2022-11-13 10:30] LABS: BLOOD UREA NITROGEN 6.4 mg/dL (7-18); CREATININE 0.9 mg/dL (0.55-1.3)
[2022-11-13 10:31] LABS: BILIRUBIN,TOTAL 2.8 mg/dL (0.2-1); TOT PROT 5.6 g/dl (6.4-8.2)
[2022-11-13] MEDS: TRIMETHOBENZAMIDE HCL 200MG/2ML INJ IM PRN (13:56)
[2022-11-13] MEDS ORDERED: MAGNESIUM SULF 50% (8.12 MEQ/2 ML-1 GM VIAL) IVPB ONE (17:56)
[2022-11-13] MEDS: KCL 10 MEQ IVPB 10 MEQ/100 ML INFUS.BAG IVPB SCH ×3 (19:36→21:25)
[2022-11-13 20:48] LABS: MAGNESIUM 2.2 mg/dL (1.8-2.4)
[2022-11-13 20:58] LABS: LACTIC ACID 4.3 mmol/L (0.4-2.0); POTASSIUM 2.8 mmol/L (3.5-5.1)
[2022-11-14] MEDS: KCL 10 MEQ IVPB 10 MEQ/100 ML INFUS.BAG IVPB SCH ×3 (00:08→12:10)
[2022-11-14] MEDS ORDERED: POTASSIUM CHLORIDE ORAL LIQUID 20 MEQ/15 ML PO ONE (09:15)
[2022-11-14 09:19] LABS: EOS % 0.4 % (0-4.5); HEMATOCRIT 34.7 % (32.4-45.2); HEMOGLOBIN 11.3 GM/dL (10.7-15.3); LYMPH % 27.3 % (8-40); MCH 32.4 pg (25.7-33.7); MCHC 32.6 g/dl (32.0-36.0); MEAN CELL VOLUME 99.2 fl (80-96); MEAN PLT VOLUME 8.8 fl (7.5-11.1); MONO % 13.5 % (3.8-10.2); NEUT % 57.8 % (42.8-82.8); PLATELET COUNT 166 10^3/uL (134-434); RDW 14.5 % (11.6-15.6); WHITE BLOOD COUNT 4.1 K/mm3 (4.0-10.0)
[2022-11-14 09:24] LABS: INR 1.1 (0.83-1.09); PROTHROMBIN TIME (PATIENT) 12.8 SEC (9.7-13.0)
[2022-11-14 09:31] LABS: POTASSIUM 3.1 mmol/L (3.5-5.1)
[2022-11-14 09:44] LABS: ALBUMIN 2.2 g/dl (3.4-5.0); BILIRUBIN,TOTAL 3.2 mg/dL (0.2-1); BLOOD UREA NITROGEN 4.7 mg/dL (7-18); CALCIUM 8.2 mg/dL (8.5-10.1); CREATININE 0.7 mg/dL (0.55-1.3)
[2022-11-14] MEDS: SODIUM CHLORIDE 0.9%/KCL 20 MEQ/1,000 ML INFUS.BAG IV SCH (10:14)
[2022-11-14] MEDS: SPIRONOLACTONE 25 MG TABLET PO SCH (10:16)
[2022-11-14] MEDS: ENOXAPARIN NA (PORCINE) 40 MG/0.4 ML DISP.SYRIN SQ SCH (10:17)
[2022-11-14] MEDS: SODIUM CHLORIDE 1,000 ML IV SCH (10:17)
[2022-11-14] MEDS: TOPIRAMATE 25 MG TABLET PO SCH (10:17)
[2022-11-14] MEDS: LISINOPRIL 10 MG TABLET PO SCH ×2 (10:19→10:23)
[2022-11-14] MEDS: HYDROCHLOROTHIAZIDE 25 MG TABLET (FP) PO SCH ×2 (10:19→10:22)
[2022-11-14] MEDS ORDERED: IBUPROFEN 400 MG TABLET (FP) PO ONE (20:54)
[2022-11-15] MEDS: TOPIRAMATE 25 MG TABLET PO SCH (09:14)
[2022-11-15] MEDS: ENOXAPARIN NA (PORCINE) 40 MG/0.4 ML DISP.SYRIN SQ SCH (09:14)
[2022-11-15] MEDS: SPIRONOLACTONE 25 MG TABLET PO SCH (09:15)
[2022-11-15] MEDS: LISINOPRIL 10 MG TABLET PO SCH (09:15)
[2022-11-15] MEDS: SODIUM CHLORIDE 0.9%/KCL 20 MEQ/1,000 ML INFUS.BAG IV SCH (09:15)
[2022-11-15] MEDS: HYDROCHLOROTHIAZIDE 25 MG TABLET (FP) PO SCH (09:15)
[2022-11-15 12:09] LABS: BASO % 1.3 % (0-2.0); EOS % 1.8 % (0-4.5); HEMATOCRIT 32.8 % (32.4-45.2); HEMOGLOBIN 10.7 GM/dL (10.7-15.3); LYMPH % 32.9 % (8-40); MCH 32.3 pg (25.7-33.7); MCHC 32.6 g/dl (32.0-36.0); MEAN CELL VOLUME 99.2 fl (80-96); MEAN PLT VOLUME 8.9 fl (7.5-11.1); MONO % 15.7 % (3.8-10.2); NEUT % 48.3 % (42.8-82.8); PLATELET COUNT 135 10^3/uL (134-434); RDW 14.7 % (11.6-15.6); WHITE BLOOD COUNT 4.2 K/mm3 (4.0-10.0)
[2022-11-15 12:28] LABS: POTASSIUM 3.2 mmol/L (3.5-5.1)
[2022-11-15 12:30] LABS: CALCIUM 8.1 mg/dL (8.5-10.1)
[2022-11-15 12:32] LABS: BLOOD UREA NITROGEN 4.3 mg/dL (7-18); MAGNESIUM 1.8 mg/dL (1.8-2.4)
[2022-11-15 12:35] LABS: BILIRUBIN,TOTAL 2.4 mg/dL (0.2-1); CREATININE 0.6 mg/dL (0.55-1.3); TOT PROT 5.4 g/dl (6.4-8.2)
[2022-11-15 12:52] VITALS: RESP 20
[2022-11-15] MEDS ORDERED: POTASSIUM CHLORIDE ORAL LIQUID 20 MEQ/15 ML PO ONE ×2 (13:15→15:30)
[2022-11-15 14:44] VITALS: BP 110/75; PULSE 101; TEMP 98
== END 2022-11-15 17:10 | disposition home or self-care (01) | DRG 392 ==
LOC: JER 12:16 → JERBED 20:29 → OBSVTOIN 20:29 → J8W 11-13 02:54
PROVIDERS: ADMIT Internal Medicine; ATTEND Nurse Practitioner Family
PROC: 0DJD8ZZ Inspection of Lower Intestinal Tract, Via Natural or Artificial Opening Endoscopic (ICD-10-PCS; principal; 2022-11-14 11:00)
DX: R10.9 Unspecified abdominal pain (principal); E87.20 Acidosis, unspecified; Z86.718 Personal history of other venous thrombosis and embolism; R16.0 Hepatomegaly, not elsewhere classified; K76.0 Fatty (change of) liver, not elsewhere classified; Z86.711 Personal history of pulmonary embolism; R79.89 Other specified abnormal findings of blood chemistry; F10.10 Alcohol abuse, uncomplicated; K70.10 Alcoholic hepatitis without ascites; R74.01 Elevation of levels of liver transaminase levels; R19.7 Diarrhea, unspecified; R94.31 Abnormal electrocardiogram [ECG] [EKG]; R06.6 Hiccough; R11.10 Vomiting, unspecified
CPT/HCPCS: 36415; 71045-TC-FY; 74177-TC; 74240-TC-FY; 80048; 80053; 81003; 83605; 83690; 83735; 83880; 84100; 84132; 84484; 84703; 85025; 85027; 85610; 86704; 86803; 87086; 87340; 87517; 87635; 93005; 93010; 94010; 99285-25; Q9967

== ENCOUNTER 2022-11-18 14:23 | Inpatient (IN) | payer BC, OTHER ==
[2022-11-18 14:37] VITALS: BMI 24.1
[2022-11-18] MEDS ORDERED: LACTATED RINGERS SOLUTION 1000 ML INFUS.BAG IV ONE (15:15)
[2022-11-18] MEDS ORDERED: FAMOTIDINE 20 MG/50 ML IVPB 20 MG/50 ML MG IVPB ONE ×2 (15:15→15:27)
[2022-11-18] MEDS ORDERED: MAG HYDROX/AL HYDROX/SIMETH 30 ML UNIT-DOSE CUP PO ONE (15:23)
[2022-11-18] MEDS ORDERED: MAG HYDROX/AL HYDROX/SIMETH 30 ML UNIT-DOSE CUP ONE (15:28)
[2022-11-18] MEDS ORDERED: ONDANSETRON 4 MG/2 ML VIAL IVPUSH ONE (15:43)
[2022-11-18] MEDS ORDERED: ONDANSETRON 4 MG/2 ML VIAL ONE ×2 (15:51→20:02)
[2022-11-18 16:12] LABS: INR 1.12 (0.83-1.09)
[2022-11-18 16:14] LABS: ACTIVATED PTT 28.5 SECONDS (25.2-36.5)
[2022-11-18 16:20] LABS: BASO % 0.8 % (0-2.0); HEMATOCRIT 37.4 % (32.4-45.2); HEMOGLOBIN 12.7 GM/dL (10.7-15.3); LYMPH % 15.1 % (8-40); MCH 32.2 pg (25.7-33.7); MCHC 33.8 g/dl (32.0-36.0); MEAN CELL VOLUME 95.3 fl (80-96); MEAN PLT VOLUME 8.7 fl (7.5-11.1); MONO % 15.9 % (3.8-10.2); NEUT % 68.2 % (42.8-82.8); PLATELET COUNT 186 10^3/uL (134-434); RBC 3.92 M/mm3 (3.60-5.2); WHITE BLOOD COUNT 7.3 K/mm3 (4.0-10.0)
[2022-11-18 16:28] LABS: POTASSIUM 3.9 mmol/L (3.5-5.1)
[2022-11-18 16:30] LABS: CALCIUM 8.9 mg/dL (8.5-10.1)
[2022-11-18 16:31] LABS: BLOOD UREA NITROGEN 6.7 mg/dL (7-18); MAGNESIUM 1.3 mg/dL (1.8-2.4)
[2022-11-18 16:34] LABS: CREATININE 0.9 mg/dL (0.55-1.3)
[2022-11-18 16:35] LABS: TOT PROT 6.9 g/dl (6.4-8.2)
[2022-11-18 16:36] LABS: BILIRUBIN,TOTAL 4.1 mg/dL (0.2-1)
[2022-11-18 16:38] LABS: ALBUMIN 2.5 g/dl (3.4-5.0)
[2022-11-18] MEDS ORDERED: TRIMETHOBENZAMIDE HCL 200MG/2ML INJ IM ONE ×3 (16:41→23:18)
[2022-11-18] MEDS ORDERED: morphine CARPU-JECT 4 MG/1 ML DISP.SYRIN IVPUSH ONE (16:41)
[2022-11-18] MEDS ORDERED: MAGNESIUM SULF 50% (8.12 MEQ/2 ML-1 GM VIAL) IVPB ONE (16:43)
[2022-11-18] MEDS ORDERED: morphine SULFATE 4 MG/ML VIAL ONE (16:58)
[2022-11-18] MEDS ORDERED: MAGNESIUM SULFATE IN WATER 2 GM/50 ML IVPB IVPB ONE (16:58)
[2022-11-18] MEDS ORDERED: SODIUM CHLORIDE 0.9% 500 ML INFUS.BAG IV ONE (18:09)
[2022-11-18] MEDS: ONDANSETRON 4 MG/2 ML VIAL IVPUSH PRN (20:01)
[2022-11-18 20:11] LABS: URINE APPEARANCE CLEAR; URINE BILIRUBIN 2+ (NEGATIVE); URINE COLOR DK YELLOW; URINE GLUCOSE (UA) NEGATIVE (NEGATIVE); URINE KETONE TRACE (NEGATIVE); URINE LEUK ESTERASE NEGATIVE (NEGATIVE); URINE NITRITE NEGATIVE (NEGATIVE); URINE PROTEIN TRACE (NEGATIVE); URINE UROBILINOGEN 4.0 E.U/dl mg/dL (0.2-1.0)
[2022-11-18 20:44] LABS: LACTIC ACID 5.2 mmol/L (0.4-2.0)
[2022-11-18] MEDS ORDERED: SODIUM CHLORIDE 1,000 ML IV STA (23:10)
[2022-11-19] MEDS: SODIUM CHLORIDE 1,000 ML IV SCH ×2 (01:40→23:00)
[2022-11-19] MEDS: ONDANSETRON 4 MG/2 ML VIAL IVPUSH PRN ×4 (01:41→19:05)
[2022-11-19 02:08] LABS: LACTIC ACID 2.6 mmol/L (0.4-2.0)
[2022-11-19] MEDS ORDERED: ACETAMINOPHEN 1000 MG/100 ML BAG IVPB PRN (02:26)
[2022-11-19] MEDS ORDERED: PANTOPRAZOLE 40 MG TABLET PO SCH (02:42)
[2022-11-19] MEDS: KETOROLAC TROMETHAMINE 15 MG/ML VIAL IVPUSH PRN (06:24)
[2022-11-19 08:52] LABS: HEMATOCRIT 35.4 % (32.4-45.2); HEMOGLOBIN 11.7 GM/dL (10.7-15.3); MCH 32.3 pg (25.7-33.7); MCHC 33.1 g/dl (32.0-36.0); MEAN CELL VOLUME 97.6 fl (80-96); MEAN PLT VOLUME 9.3 fl (7.5-11.1); PLATELET COUNT 171 10^3/uL (134-434); RBC 3.63 M/mm3 (3.60-5.2); RDW 15.4 % (11.6-15.6)
[2022-11-19 09:09] LABS: POTASSIUM 3.7 mmol/L (3.5-5.1)
[2022-11-19 09:12] LABS: ALBUMIN 2.4 g/dl (3.4-5.0); BLOOD UREA NITROGEN 7.4 mg/dL (7-18); CALCIUM 8.7 mg/dL (8.5-10.1); MAGNESIUM 2.2 mg/dL (1.8-2.4)
[2022-11-19 09:15] LABS: CREATININE 0.8 mg/dL (0.55-1.3)
[2022-11-19 09:17] LABS: TOT PROT 6.5 g/dl (6.4-8.2)
[2022-11-19] MEDS: ENOXAPARIN NA (PORCINE) 40 MG/0.4 ML DISP.SYRIN SQ SCH (10:33)
[2022-11-19] MEDS: PANTOPRAZOLE SODIUM 40 MG VIAL IVPUSH SCH (10:33)
[2022-11-19] MEDS ORDERED: TRIMETHOBENZAMIDE HCL 200MG/2ML INJ IM PRN (10:58)
[2022-11-19 20:17] LABS: BILIRUBIN,DIRECT 2.6 mg/dL (0.0-0.2)
[2022-11-20] MEDS: SODIUM CHLORIDE 1,000 ML IV SCH (03:23)
[2022-11-20 09:54] LABS: HEMATOCRIT 35.9 % (32.4-45.2); MCH 32.6 pg (25.7-33.7); MCHC 33.4 g/dl (32.0-36.0); MEAN CELL VOLUME 97.6 fl (80-96); MEAN PLT VOLUME 8.3 fl (7.5-11.1); PLATELET COUNT 157 10^3/uL (134-434); RBC 3.67 M/mm3 (3.60-5.2); RDW 15.3 % (11.6-15.6); WHITE BLOOD COUNT 4.6 K/mm3 (4.0-10.0)
[2022-11-20 10:02] LABS: POTASSIUM 3.4 mmol/L (3.5-5.1)
[2022-11-20 10:10] LABS: CALCIUM 8.7 mg/dL (8.5-10.1)
[2022-11-20 10:11] LABS: ALBUMIN 2.3 g/dl (3.4-5.0); BLOOD UREA NITROGEN 7.3 mg/dL (7-18); MAGNESIUM 2.2 mg/dL (1.8-2.4)
[2022-11-20 10:14] LABS: BILIRUBIN,DIRECT 3.1 mg/dL (0.0-0.2); CREATININE 0.7 mg/dL (0.55-1.3); PHOSPHOROUS 2.5 mg/dL (2.5-4.9)
[2022-11-20 10:15] LABS: BILIRUBIN,TOTAL 4.3 mg/dL (0.2-1); TOT PROT 6.3 g/dl (6.4-8.2)
[2022-11-20] MEDS: PANTOPRAZOLE SODIUM 40 MG VIAL IVPUSH SCH (10:43)
[2022-11-20] MEDS: ENOXAPARIN NA (PORCINE) 40 MG/0.4 ML DISP.SYRIN SQ SCH (10:43)
[2022-11-20] MEDS: ONDANSETRON 4 MG/2 ML VIAL IVPUSH PRN ×2 (15:55→21:49)
[2022-11-20] MEDS ORDERED: AMINO ACIDS 4.25%/D5W 1,000 ML IV SCH (16:00)
[2022-11-20 21:56] VITALS: RESP 18
[2022-11-21 10:04] LABS: POTASSIUM 3.2 mmol/L (3.5-5.1)
[2022-11-21 10:13] LABS: CALCIUM 7.9 mg/dL (8.5-10.1)
[2022-11-21 10:14] LABS: ALBUMIN 1.9 g/dl (3.4-5.0); MAGNESIUM 1.8 mg/dL (1.8-2.4)
[2022-11-21 10:16] LABS: BILIRUBIN,TOTAL 2.6 mg/dL (0.2-1); TOT PROT 5.4 g/dl (6.4-8.2)
[2022-11-21 10:17] LABS: BILIRUBIN,DIRECT 2.1 mg/dL (0.0-0.2); CREATININE 0.9 mg/dL (0.55-1.3)
[2022-11-21] MEDS: ENOXAPARIN NA (PORCINE) 40 MG/0.4 ML DISP.SYRIN SQ SCH (10:56)
[2022-11-21] MEDS: PANTOPRAZOLE SODIUM 40 MG VIAL IVPUSH SCH (10:56)
[2022-11-21] MEDS: ONDANSETRON 4 MG/2 ML VIAL IVPUSH PRN (10:56)
[2022-11-21] MEDS ORDERED: NAPH,MB-DB/K PH,MBDB POWDER PACKET PO ONE (12:30)
[2022-11-21] MEDS ORDERED: AMINO ACIDS 4.25%/D5W 1,000 ML IV SCH (13:00)
[2022-11-21] MEDS: KETOROLAC TROMETHAMINE 15 MG/ML VIAL IVPUSH PRN (14:29)
[2022-11-21 23:01] VITALS: BP 121/78; PULSE 90; TEMP 98.1
[2022-11-25 16:09] LABS: SOLUBLE LIVER ANTIGEN ABS IgG 0.7 units (0.0-20.0)
[2022-11-26 16:10] LABS: ATYPICAL pANCA <1:20 titer (Neg:<1:20); C-ANCA <1:20 titer (Neg:<1:20)
== END 2022-11-22 00:05 | disposition short-term general hospital (02) | DRG 395 ==
LOC: JER 14:23 → JERBED 18:35 → J6S 22:30
PROVIDERS: ADMIT Internal Medicine; ATTEND Internal Medicine
DX: K95.09 Other complications of gastric band procedure (principal); Y84.9 Medical procedure, unspecified as the cause of abnormal reaction of the patient, or of later complication, without mention of misadventure at the time of the procedure; R11.2 Nausea with vomiting, unspecified; R16.0 Hepatomegaly, not elsewhere classified; R19.7 Diarrhea, unspecified
CPT/HCPCS: 36415; 74177-TC; 80053; 80307; 81003; 82248; 82607; 82746; 83516; 83520; 83605; 83690; 83735; 84100; 84443; 84484; 85025; 85027; 85610; 85730; 86038; 86256; 87086; 87186; 87635; 93005; 93010; 99285-25; Q9967

== ENCOUNTER 2022-12-29 04:48 | Observation (INO) | payer BC, OTHER ==
[2022-12-29] MEDS ORDERED: SODIUM CHLORIDE 0.9% 500 ML INFUS.BAG IV ONE ×2 (07:50→11:16)
[2022-12-29] MEDS ORDERED: ACETAMINOPHEN 1000 MG/100 ML BAG IVPB ONE (07:50)
[2022-12-29] MEDS ORDERED: FAMOTIDINE 20 MG/50 ML IVPB 20 MG/50 ML MG IVPB ONE ×2 (07:50→07:54)
[2022-12-29] MEDS ORDERED: ONDANSETRON 4 MG/2 ML VIAL IVPUSH ONE ×2 (07:50→11:21)
[2022-12-29] MEDS ORDERED: ONDANSETRON 4 MG/2 ML VIAL ONE ×2 (07:54→11:22)
[2022-12-29] MEDS ORDERED: ACETAMINOPHEN INJECTION 100 ML IVPB ONE (07:54)
[2022-12-29 08:51] LABS: PH,URINE 5.5 (5.0-8.0); URINE APPEARANCE CLEAR; URINE BILIRUBIN NEGATIVE (NEGATIVE); URINE COLOR YELLOW; URINE GLUCOSE (UA) NEGATIVE (NEGATIVE); URINE KETONE 4+ (NEGATIVE); URINE LEUK ESTERASE NEGATIVE (NEGATIVE); URINE NITRITE NEGATIVE (NEGATIVE); URINE PROTEIN TRACE (NEGATIVE)
[2022-12-29 08:52] LABS: INR 1.09 (0.83-1.09); PROTHROMBIN TIME (PATIENT) 12.6 SEC (9.7-13.0)
[2022-12-29 08:55] LABS: ACTIVATED PTT 29.4 SECONDS (25.2-36.5); HEMATOCRIT 28.5 % (32.4-45.2); HEMOGLOBIN 9.2 GM/dL (10.7-15.3); MCHC 32.2 g/dl (32.0-36.0); MEAN PLT VOLUME 8.9 fl (7.5-11.1); PLATELET COUNT 305 10^3/uL (134-434); RBC 3.17 M/mm3 (3.60-5.2); RDW 17.1 % (11.6-15.6); WHITE BLOOD COUNT 6.1 K/mm3 (4.0-10.0)
[2022-12-29 09:07] LABS: POTASSIUM 3.6 mmol/L (3.5-5.1)
[2022-12-29 09:10] LABS: BLOOD UREA NITROGEN 6.8 mg/dL (7-18); CALCIUM 9.2 mg/dL (8.5-10.1)
[2022-12-29 09:11] LABS: ALBUMIN 2.9 g/dl (3.4-5.0); MAGNESIUM 1.5 mg/dL (1.8-2.4)
[2022-12-29 09:14] LABS: CREATININE 0.6 mg/dL (0.55-1.3)
[2022-12-29 09:15] LABS: TOT PROT 7.2 g/dl (6.4-8.2)
[2022-12-29 09:16] LABS: BILIRUBIN,TOTAL 1.4 mg/dL (0.2-1)
[2022-12-29] MEDS ORDERED: MAGNESIUM SULF 50% (8.12 MEQ/2 ML-1 GM VIAL) IVPB ONE (09:51)
[2022-12-29] MEDS ORDERED: MAGNESIUM SULFATE IN WATER 2 GM/50 ML IVPB IVPB ONE (09:55)
[2022-12-29] MEDS ORDERED: FENTANYL CITRATE/PF 50 MCG/ML VIAL ONE (10:25)
[2022-12-29 10:29] LABS: ANISOCYTOSIS 1+; MACROCYTOSIS 0
[2022-12-29] MEDS ORDERED: MAG HYDROX/AL HYDROX/SIMETH 30 ML UNIT-DOSE CUP PO PRN (12:33)
[2022-12-29] MEDS ORDERED: ONDANSETRON 4 MG/2 ML VIAL IVPUSH PRN (12:33)
[2022-12-29] MEDS ORDERED: ACETAMINOPHEN 500 MG TABLET (FP) PO PRN (12:34)
[2022-12-29] MEDS ORDERED: METOCLOPRAMIDE HCL INJECTION 10 MG/2 ML VIAL IVPUSH PRN (12:34)
[2022-12-29] MEDS ORDERED: METOCLOPRAMIDE HCL INJECTION 10 MG/2 ML VIAL ONE (13:29)
[2022-12-29] MEDS: METOCLOPRAMIDE HCL INJECTION 10 MG/2 ML VIAL IVPUSH SCH (18:03)
[2022-12-29] MEDS: HEPARIN NA (PORCINE) 5,000 UNITS/ML 1ML VIAL SQ SCH (22:34)
[2022-12-30] MEDS: METOCLOPRAMIDE HCL INJECTION 10 MG/2 ML VIAL IVPUSH SCH ×3 (06:43→17:02)
[2022-12-30] MEDS: PANTOPRAZOLE 40 MG TABLET PO SCH (10:10)
[2022-12-30] MEDS: HEPARIN NA (PORCINE) 5,000 UNITS/ML 1ML VIAL SQ SCH ×2 (10:11→21:51)
[2022-12-30 10:20] LABS: HEMATOCRIT 26.8 % (32.4-45.2); HEMOGLOBIN 8.5 GM/dL (10.7-15.3); MCH 28.5 pg (25.7-33.7); MCHC 31.8 g/dl (32.0-36.0); MEAN CELL VOLUME 89.6 fl (80-96); MEAN PLT VOLUME 9.2 fl (7.5-11.1); PLATELET COUNT 219 10^3/uL (134-434); RBC 2.99 M/mm3 (3.60-5.2); RDW 17.3 % (11.6-15.6); WHITE BLOOD COUNT 3.5 K/mm3 (4.0-10.0)
[2022-12-30 10:32] LABS: POTASSIUM 3.1 mmol/L (3.5-5.1)
[2022-12-30 10:41] LABS: BLOOD UREA NITROGEN 3.4 mg/dL (7-18); CALCIUM 8.8 mg/dL (8.5-10.1)
[2022-12-30 10:44] LABS: CREATININE 0.4 mg/dL (0.55-1.3)
[2022-12-30 12:42] LABS: ANISOCYTOSIS 2+; MACROCYTOSIS 0; TEAR DROP CELLS 2+
[2022-12-30] MEDS ORDERED: SCOPOLAMINE HYDROBROMIDE 1 PATCH PATCH.TD72 TD SCH (13:30)
[2022-12-31] MEDS ORDERED: TRIMETHOBENZAMIDE HCL 200MG/2ML INJ IM ONE (00:11)
[2022-12-31] MEDS: METOCLOPRAMIDE HCL INJECTION 10 MG/2 ML VIAL IVPUSH SCH ×3 (06:17→17:46)
[2022-12-31 08:55] LABS: BASO % 2.8 % (0-2.0); EOS % 1.4 % (0-4.5); HEMATOCRIT 28.9 % (32.4-45.2); HEMOGLOBIN 9.2 GM/dL (10.7-15.3); MCH 28.2 pg (25.7-33.7); MCHC 31.7 g/dl (32.0-36.0); MEAN PLT VOLUME 9.1 fl (7.5-11.1); MONO % 16.6 % (3.8-10.2); NEUT % 41.2 % (42.8-82.8); PLATELET COUNT 238 10^3/uL (134-434); RBC 3.24 M/mm3 (3.60-5.2); RDW 17.6 % (11.6-15.6); WHITE BLOOD COUNT 3.3 K/mm3 (4.0-10.0)
[2022-12-31 09:14] LABS: POTASSIUM 3.1 mmol/L (3.5-5.1)
[2022-12-31 09:25] LABS: BLOOD UREA NITROGEN 3.3 mg/dL (7-18); CALCIUM 8.8 mg/dL (8.5-10.1); MAGNESIUM 1.8 mg/dL (1.8-2.4)
[2022-12-31 09:27] LABS: ALBUMIN 2.5 g/dl (3.4-5.0)
[2022-12-31 09:28] LABS: CREATININE 0.5 mg/dL (0.55-1.3)
[2022-12-31 09:29] LABS: BILIRUBIN,TOTAL 1.1 mg/dL (0.2-1)
[2022-12-31 09:33] LABS: TOT PROT 6.1 g/dl (6.4-8.2)
[2022-12-31] MEDS: HEPARIN NA (PORCINE) 5,000 UNITS/ML 1ML VIAL SQ SCH (09:45)
[2022-12-31] MEDS: PANTOPRAZOLE 40 MG TABLET PO SCH (09:45)
[2022-12-31 15:37] VITALS: RESP 20
[2022-12-31 16:32] VITALS: BMI 31.2
[2022-12-31 17:15] VITALS: BP 110/80; PULSE 95; TEMP 98.3
== END 2022-12-31 18:25 | disposition home or self-care (01) ==
LOC: JER 04:48 → JERBED 12:07 → J8W 14:48
PROVIDERS: ADMIT Internal Medicine; ATTEND Nurse Practitioner Acute Care
PROC: 3E033NZ Introduction of Analgesics, Hypnotics, Sedatives into Peripheral Vein, Percutaneous Approach (ICD-10-PCS; principal; 2022-12-29)
PROC: 3E033GC Introduction of Other Therapeutic Substance into Peripheral Vein, Percutaneous Approach (ICD-10-PCS; 2022-12-29)
PROC: 3E023GC Introduction of Other Therapeutic Substance into Muscle, Percutaneous Approach (ICD-10-PCS; 2022-12-29)
PROC: 3E0337Z Introduction of Electrolytic and Water Balance Substance into Peripheral Vein, Percutaneous Approach (ICD-10-PCS; 2022-12-29)
DX: R11.2 Nausea with vomiting, unspecified (principal); R10.9 Unspecified abdominal pain; D64.9 Anemia, unspecified; K62.5 Hemorrhage of anus and rectum; K63.89 Other specified diseases of intestine; Z90.49 Acquired absence of other specified parts of digestive tract; Z98.84 Bariatric surgery status; Z88.8 Allergy status to other drugs, medicaments and biological substances; Z91.013 Allergy to seafood
CPT/HCPCS: 36415; 71046-TC-FY; 72125-TC; 74177-TC; 80048; 80053; 81003; 82272; 82607; 82728; 82746; 83540; 83550; 83690; 83735; 84466; 84484; 84703; 85025; 85610; 85730; 87086; 87205; 87324; 87449; 93005; 93010; 99285-25; G0378; J1644; Q9967

== ENCOUNTER 2023-01-08 16:42 | Inpatient (IN) | payer BC, OTHER ==
[2023-01-08] MEDS ORDERED: FAMOTIDINE 20 MG/50 ML IVPB 20 MG/50 ML MG IVPB ONE ×2 (18:43→19:26)
[2023-01-08] MEDS ORDERED: SODIUM CHLORIDE 0.9% 500 ML INFUS.BAG IV ONE ×2 (18:43→21:29)
[2023-01-08] MEDS ORDERED: METOCLOPRAMIDE HCL INJECTION 10 MG/2 ML VIAL IVPUSH ONE (18:43)
[2023-01-08] MEDS ORDERED: ACETAMINOPHEN 1000 MG/100 ML BAG IVPB ONE (18:43)
[2023-01-08] MEDS ORDERED: ACETAMINOPHEN INJECTION 100 ML IVPB ONE (18:48)
[2023-01-08] MEDS ORDERED: METOCLOPRAMIDE HCL INJECTION 10 MG/2 ML VIAL ONE (18:56)
[2023-01-08 19:05] LABS: BASO % 1.3 % (0-2.0); HEMOGLOBIN 10.6 GM/dL (10.7-15.3); LYMPH % 17.5 % (8-40); MCH 27.5 pg (25.7-33.7); MCHC 33.1 g/dl (32.0-36.0); MEAN CELL VOLUME 82.9 fl (80-96); MEAN PLT VOLUME 9.3 fl (7.5-11.1); MONO % 14.1 % (3.8-10.2); NEUT % 67.1 % (42.8-82.8); PLATELET COUNT 236 10^3/uL (134-434); RBC 3.86 M/mm3 (3.60-5.2); RDW 18.5 % (11.6-15.6); WHITE BLOOD COUNT 4.6 K/mm3 (4.0-10.0)
[2023-01-08 19:13] LABS: CHLORIDE 84 mmol/L (98-107); SODIUM 130 mmol/L (136-145)
[2023-01-08 19:17] LABS: CALCIUM 9.2 mg/dL (8.5-10.1)
[2023-01-08 19:18] LABS: BLOOD UREA NITROGEN 6.9 mg/dL (7-18); CO2 28 mmol/L (21-32); GLUCOSE,RANDOM 140 mg/dL (74-106)
[2023-01-08 19:19] LABS: LIPASE 39 U/L (73-393)
[2023-01-08 19:21] LABS: SGOT/AST 119 U/L (15-37); SGPT/ALT 41 U/L (13-61)
[2023-01-08 19:22] LABS: BILIRUBIN,TOTAL 2.3 mg/dL (0.2-1)
[2023-01-08 19:23] LABS: TOT PROT 7.3 g/dl (6.4-8.2)
[2023-01-08 19:29] LABS: ALK PHOS 135 U/L (45-117); ANION GAP 18 MMOL/L (8-16); POTASSIUM 2.8 mmol/L (3.5-5.1)
[2023-01-08] MEDS ORDERED: morphine CARPU-JECT 4 MG/1 ML DISP.SYRIN IVPUSH ONE ×2 (19:56→23:45)
[2023-01-08] MEDS ORDERED: morphine SULFATE 4 MG/ML VIAL ONE ×2 (20:00→23:57)
[2023-01-08] MEDS ORDERED: TRIMETHOBENZAMIDE HCL 200MG/2ML INJ IM ONE (20:03)
[2023-01-08] MEDS ORDERED: KCL 10 MEQ IVPB 20 MEQ/200 ML INFUS.BAG IVPB ONE ×2 (21:26→21:28)
[2023-01-08] MEDS: KCL 10 MEQ IVPB 10 MEQ/100 ML INFUS.BAG IVPB SCH ×3 (21:29→23:34)
[2023-01-08 22:36] LABS: MAGNESIUM 1.2 mg/dL (1.8-2.4)
[2023-01-09] MEDS: KCL 10 MEQ IVPB 10 MEQ/100 ML INFUS.BAG IVPB SCH ×3 (00:30→02:14)
[2023-01-09 09:32] LABS: URINE APPEARANCE CLEAR; URINE BILIRUBIN NEGATIVE (NEGATIVE); URINE COLOR DK YELLOW; URINE GLUCOSE (UA) NEGATIVE (NEGATIVE); URINE KETONE TRACE (NEGATIVE)
[2023-01-09 09:33] LABS: URINE LEUK ESTERASE NEGATIVE (NEGATIVE); URINE NITRITE NEGATIVE (NEGATIVE); URINE PROTEIN NEGATIVE (NEGATIVE)
[2023-01-09] MEDS ORDERED: morphine CARPU-JECT 4 MG/1 ML DISP.SYRIN IVPUSH ONE (09:35)
[2023-01-09 09:40] LABS: EPI CELLS 13 /uL (0-25.1); HYALINE CASTS 0.14 /uL (0-3.1); URINE BACTERIA 69 /uL (0-1359); URINE RBC 19 /uL (0-23.9); URINE WBC 4 /uL (0-25.8)
[2023-01-09] MEDS ORDERED: morphine SULFATE 4 MG/ML VIAL ONE (09:44)
[2023-01-09] MEDS ORDERED: METOCLOPRAMIDE HCL INJECTION 10 MG/2 ML VIAL IVPUSH PRN (11:27)
[2023-01-09] MEDS ORDERED: PANTOPRAZOLE SODIUM 40 MG VIAL IVPUSH SCH ×2 (11:30→22:00)
[2023-01-09] MEDS ORDERED: METOCLOPRAMIDE HCL INJECTION 10 MG/2 ML VIAL ONE (12:14)
[2023-01-09] MEDS ORDERED: ENOXAPARIN NA (PORCINE) 40 MG/0.4 ML DISP.SYRIN SQ ONE (12:14)
[2023-01-09] MEDS: ENOXAPARIN NA (PORCINE) 40 MG/0.4 ML DISP.SYRIN SQ SCH (12:28)
[2023-01-09] MEDS: SODIUM CHLORIDE 0.9%/KCL 20 MEQ/1,000 ML INFUS.BAG IV SCH ×2 (12:58→21:38)
[2023-01-09] MEDS ORDERED: SUCRALFATE 1 GM TABLET (FP) ONE (13:07)
[2023-01-09] MEDS: SUCRALFATE 1 GM TABLET (FP) PO SCH ×3 (13:14→21:38)
[2023-01-09 13:45] LABS: EOS % 0.8 % (0-4.5); HEMATOCRIT 27.9 % (32.4-45.2); MCH 27.7 pg (25.7-33.7); MCHC 32.2 g/dl (32.0-36.0); MEAN CELL VOLUME 85.9 fl (80-96); MEAN PLT VOLUME 9.3 fl (7.5-11.1); MONO % 13.2 % (3.8-10.2); PLATELET COUNT 189 10^3/uL (134-434); RBC 3.24 M/mm3 (3.60-5.2); RDW 18.7 % (11.6-15.6); WHITE BLOOD COUNT 5.2 K/mm3 (4.0-10.0)
[2023-01-09 14:19] LABS: CHLORIDE 98 mmol/L (98-107)
[2023-01-09 14:28] LABS: CALCIUM 8.2 mg/dL (8.5-10.1); CREATININE 0.6 mg/dL (0.55-1.3); MAGNESIUM 1.4 mg/dL (1.8-2.4)
[2023-01-09 14:30] LABS: SGPT/ALT 31 U/L (13-61)
[2023-01-09 14:31] LABS: ALK PHOS 106 U/L (45-117)
[2023-01-09 14:33] LABS: ALBUMIN 2.5 g/dl (3.4-5.0); ANION GAP 9 MMOL/L (8-16); BILIRUBIN,TOTAL 1.5 mg/dL (0.2-1); BLOOD UREA NITROGEN 4.6 mg/dL (7-18); CO2 31 mmol/L (21-32); GLUCOSE,RANDOM 78 mg/dL (74-106); PHOSPHOROUS 3.2 mg/dL (2.5-4.9); POTASSIUM 2.8 mmol/L (3.5-5.1); SGOT/AST 74 U/L (15-37); SODIUM 138 mmol/L (136-145)
[2023-01-09 22:21] VITALS: RESP 20
[2023-01-10] MEDS: KCL 10 MEQ IVPB 10 MEQ/100 ML INFUS.BAG IVPB SCH ×3 (00:09→03:59)
[2023-01-10] MEDS ORDERED: MAGNESIUM SULF 50% (8.12 MEQ/2 ML-1 GM VIAL) IVPB ONE (09:00)
[2023-01-10] MEDS: POTASSIUM CHLORIDE ORAL LIQUID 20 MEQ/15 ML PO SCH ×2 (09:49→22:37)
[2023-01-10] MEDS: PANTOPRAZOLE SODIUM 40 MG VIAL IVPUSH SCH (09:50)
[2023-01-10] MEDS: SUCRALFATE 1 GM TABLET (FP) PO SCH ×4 (09:51→22:37)
[2023-01-10] MEDS: ENOXAPARIN NA (PORCINE) 40 MG/0.4 ML DISP.SYRIN SQ SCH (09:51)
[2023-01-10 10:09] LABS: BASO % 1.3 % (0-2.0); EOS % 1.6 % (0-4.5); HEMATOCRIT 27.3 % (32.4-45.2); HEMOGLOBIN 8.9 GM/dL (10.7-15.3); LYMPH % 35.2 % (8-40); MCH 27.7 pg (25.7-33.7); MCHC 32.6 g/dl (32.0-36.0); MEAN CELL VOLUME 84.9 fl (80-96); MEAN PLT VOLUME 8.3 fl (7.5-11.1); MONO % 18.1 % (3.8-10.2); NEUT % 43.8 % (42.8-82.8); PLATELET COUNT 180 10^3/uL (134-434); RBC 3.21 M/mm3 (3.60-5.2); RDW 18.6 % (11.6-15.6); WHITE BLOOD COUNT 2.9 K/mm3 (4.0-10.0)
[2023-01-10 10:22] LABS: POTASSIUM 3.3 mmol/L (3.5-5.1)
[2023-01-10 10:34] LABS: ALBUMIN 2.2 g/dl (3.4-5.0); CALCIUM 8.1 mg/dL (8.5-10.1)
[2023-01-10 10:35] LABS: BLOOD UREA NITROGEN 3.3 mg/dL (7-18); MAGNESIUM 1.5 mg/dL (1.8-2.4)
[2023-01-10 10:37] LABS: CREATININE 0.8 mg/dL (0.55-1.3); PHOSPHOROUS 3.4 mg/dL (2.5-4.9)
[2023-01-10 10:39] LABS: TOT PROT 5.6 g/dl (6.4-8.2)
[2023-01-10] MEDS ORDERED: MAGNESIUM 1GM/D5W 100ML - 100 ML IVPB IVPB ONE (13:00)
[2023-01-10] MEDS: LACTATED RINGERS SOLUTION 1,000 ML/1,000 ML INFUS.BAG IV SCH (14:54)
[2023-01-10] MEDS ORDERED: SCOPOLAMINE HYDROBROMIDE 1 PATCH PATCH.TD72 TD SCH (18:30)
[2023-01-10] MEDS: SODIUM CHLORIDE 0.9%/KCL 20 MEQ/1,000 ML INFUS.BAG IV SCH (19:36)
[2023-01-11] MEDS: LACTATED RINGERS SOLUTION 1,000 ML/1,000 ML INFUS.BAG IV SCH ×2 (06:57→13:09)
[2023-01-11 08:53] VITALS: BP 131/86; PULSE 93; TEMP 98.1
[2023-01-11] MEDS: SUCRALFATE 1 GM TABLET (FP) PO SCH ×2 (09:27→13:08)
[2023-01-11] MEDS: POTASSIUM CHLORIDE ORAL LIQUID 20 MEQ/15 ML PO SCH (09:27)
[2023-01-11] MEDS: ENOXAPARIN NA (PORCINE) 40 MG/0.4 ML DISP.SYRIN SQ SCH (09:28)
[2023-01-11] MEDS: PANTOPRAZOLE SODIUM 40 MG VIAL IVPUSH SCH (09:28)
[2023-01-11 10:17] LABS: HEMATOCRIT 31.1 % (32.4-45.2); HEMOGLOBIN 9.8 GM/dL (10.7-15.3); MCH 27.8 pg (25.7-33.7); MCHC 31.5 g/dl (32.0-36.0); MEAN CELL VOLUME 88.2 fl (80-96); MEAN PLT VOLUME 9.2 fl (7.5-11.1); PLATELET COUNT 220 10^3/uL (134-434); RBC 3.52 M/mm3 (3.60-5.2); RDW 18.9 % (11.6-15.6); WHITE BLOOD COUNT 3.7 K/mm3 (4.0-10.0)
[2023-01-11 10:36] LABS: CHLORIDE 108 mmol/L (98-107); SODIUM 142 mmol/L (136-145)
[2023-01-11 10:40] LABS: ANION GAP 6 MMOL/L (8-16); CALCIUM 8.7 mg/dL (8.5-10.1); CO2 27 mmol/L (21-32); GLUCOSE,RANDOM 117 mg/dL (74-106); MAGNESIUM 2.1 mg/dL (1.8-2.4)
[2023-01-11 10:43] LABS: CREATININE 0.6 mg/dL (0.55-1.3); IRON SERUM 15 ug/dL (50-175); PHOSPHOROUS 2.9 mg/dL (2.5-4.9); TOTAL IRON BINDING CAPACITY 306 ug/dL (250-450)
[2023-01-11 10:46] LABS: BLOOD UREA NITROGEN 2.3 mg/dL (7-18)
== END 2023-01-11 16:05 | disposition home or self-care (01) | DRG 392 ==
LOC: JER 16:42 → JERBED 23:41 → J6S 01-09 15:14
PROVIDERS: ADMIT Internal Medicine; ATTEND Internal Medicine
DX: K52.9 Noninfective gastroenteritis and colitis, unspecified (principal); E87.1 Hypo-osmolality and hyponatremia; Z86.718 Personal history of other venous thrombosis and embolism; Z86.711 Personal history of pulmonary embolism; E83.42 Hypomagnesemia; D50.9 Iron deficiency anemia, unspecified; E87.6 Hypokalemia; K76.0 Fatty (change of) liver, not elsewhere classified; F41.9 Anxiety disorder, unspecified
CPT/HCPCS: 36415; 74177-TC; 80048; 80053; 81003; 83540; 83550; 83690; 83735; 84100; 84110; 84436; 84443; 84702; 84703; 85025; 85027; 93005; 93010; 99285-25; Q9967

== ENCOUNTER 2023-03-12 14:12 | Emergency (ER) | payer BC ==
[2023-03-12 14:24] VITALS: BMI 88.2
[2023-03-12] MEDS ORDERED: ONDANSETRON 4 MG/2 ML VIAL IVPUSH PRN (15:28)
[2023-03-12] MEDS ORDERED: morphine CARPU-JECT 2 MG/1 ML DISP.SYRIN IVPUSH ONE ×2 (15:35→20:49)
[2023-03-12] MEDS ORDERED: ONDANSETRON 4 MG/2 ML VIAL ONE (15:38)
[2023-03-12 16:53] LABS: BASO % 0.5 % (0-2.0); EOS % 0.1 % (0-4.5); HEMOGLOBIN 10.1 GM/dL (10.7-15.3); LYMPH % 17.7 % (8-40); MCH 31.3 pg (25.7-33.7); MCHC 33.7 g/dl (32.0-36.0); MEAN CELL VOLUME 92.9 fl (80-96); MEAN PLT VOLUME 8.6 fl (7.5-11.1); MONO % 15.8 % (3.8-10.2); NEUT % 65.9 % (42.8-82.8); PLATELET COUNT 134 10^3/uL (134-434); RBC 3.23 M/mm3 (3.60-5.2); RDW 19.3 % (11.6-15.6); WHITE BLOOD COUNT 9.4 K/mm3 (4.0-10.0)
[2023-03-12 17:11] LABS: CHLORIDE 92 mmol/L (98-107); SODIUM 133 mmol/L (136-145)
[2023-03-12 17:13] LABS: CALCIUM 8.2 mg/dL (8.5-10.1)
[2023-03-12 17:14] LABS: ALBUMIN 1.8 g/dl (3.4-5.0); ANION GAP 10 MMOL/L (8-16); BLOOD UREA NITROGEN 2.1 mg/dL (7-18); CO2 31 mmol/L (21-32); GLUCOSE,RANDOM 106 mg/dL (74-106); LIPASE 36 U/L (73-393); MAGNESIUM 1.9 mg/dL (1.8-2.4)
[2023-03-12 17:16] LABS: BILIRUBIN,DIRECT 5.8 mg/dL (0.0-0.2); CREATININE 0.9 mg/dL (0.55-1.3); SGOT/AST 92 U/L (15-37); SGPT/ALT 36 U/L (13-61)
[2023-03-12 17:18] LABS: BILIRUBIN,TOTAL 7.3 mg/dL (0.2-1); TOT PROT 6.5 g/dl (6.4-8.2)
[2023-03-12 17:19] LABS: ALK PHOS 155 U/L (45-117)
[2023-03-12 17:22] LABS: N-TERMINAL BNP 3167.5 pg/ml (5-125)
[2023-03-12] MEDS ORDERED: METOCLOPRAMIDE HCL INJECTION 10 MG/2 ML VIAL IVPUSH ONE ×2 (17:33→21:05)
[2023-03-12] MEDS ORDERED: METOCLOPRAMIDE HCL INJECTION 10 MG/2 ML VIAL ONE ×2 (18:22→21:11)
[2023-03-12] MEDS ORDERED: KCL 10 MEQ IVPB 10 MEQ/100 ML INFUS.BAG IVPB ONE (18:23)
[2023-03-12 18:25] LABS: INR 2.14 (0.83-1.09); PROTHROMBIN TIME (PATIENT) 24.6 SEC (9.7-13.0)
[2023-03-12] MEDS ORDERED: PIPERACILLIN/TAZOB 4.5 GM 4.5 GM in DEXTROSE 5%-WATER 100 ML IVPB ONE (20:08)
[2023-03-12] MEDS: KCL 10 MEQ IVPB 10 MEQ/100 ML INFUS.BAG IVPB SCH ×2 (20:15→22:33)
[2023-03-12] MEDS ORDERED: PIPERACILLIN/TAZOB 4.5 GM 4.5 GM/100 ML BAG IVPB ONE (20:18)
[2023-03-12] MEDS ORDERED: VANCOMYCIN 1,000 MG in DEXTROSE 5%-WATER - 250 ML IVPB ONE (22:12)
[2023-03-12] MEDS ORDERED: KCL 10 MEQ IVPB 20 MEQ/200 ML INFUS.BAG IVPB ONE (22:20)
[2023-03-12] MEDS ORDERED: ONDANSETRON 4 MG/2 ML VIAL IVPUSH ONE (22:57)
[2023-03-12 22:58] VITALS: BP 102/67; PULSE 114; RESP 16; TEMP 98.3
[2023-03-13] MEDS ORDERED: ONDANSETRON 4 MG/2 ML VIAL ONE (00:44)
== END 2023-03-13 00:51 | disposition short-term general hospital (02) ==
LOC: JER 14:12
PROC: 3E03329 Introduction of Other Anti-infective into Peripheral Vein, Percutaneous Approach (ICD-10-PCS; principal; 2023-03-12)
PROC: 3E033GC Introduction of Other Therapeutic Substance into Peripheral Vein, Percutaneous Approach (ICD-10-PCS; 2023-03-12)
PROC: 3E033GC Introduction of Other Therapeutic Substance into Peripheral Vein, Percutaneous Approach (ICD-10-PCS; 2023-03-12)
PROC: 3E033GC Introduction of Other Therapeutic Substance into Peripheral Vein, Percutaneous Approach (ICD-10-PCS; 2023-03-12)
PROC: 3E033GC Introduction of Other Therapeutic Substance into Peripheral Vein, Percutaneous Approach (ICD-10-PCS; 2023-03-12)
PROC: 3E033GC Introduction of Other Therapeutic Substance into Peripheral Vein, Percutaneous Approach (ICD-10-PCS; 2023-03-12)
PROC: 3E033GC Introduction of Other Therapeutic Substance into Peripheral Vein, Percutaneous Approach (ICD-10-PCS; 2023-03-12)
DX: R17 Unspecified jaundice (principal); R60.0 Localized edema; R10.84 Generalized abdominal pain; R11.2 Nausea with vomiting, unspecified; K52.9 Noninfective gastroenteritis and colitis, unspecified; Z20.822 Contact with and (suspected) exposure to COVID-19
CPT/HCPCS: 0241U-QW; 36415; 71045-TC-FY; 74177-TC; 76700-TC; 80053; 80307; 82140; 82248; 83690; 83735; 83880; 84703; 85025; 85610; 85730; 93005; 93010; 93970-TC; 99285-25